=== PATIENT | female | born 1990 | race Two or more races ===

== ENCOUNTER 2018-11-17 20:50 | Emergency (ER) | payer SELFPAY ==
[~2018-11-17] VITALS: Ht 170.2 cm; Wt 74.8 kg
[2018-11-17 20:58] VITALS: BP 139/56
[2018-11-17 21:14] LABS: BILIRUBIN,URINE NEGATIVE (NEG); CLARITY,URINE CLOUDY; COLOR,URINE YELLOW; NITRITE,URINE POSITIVE (NEG); PH,URINE 6.5; PROTEIN,URINE 30 mg/dL (NEG-TRACE)
[2018-11-17 21:30] LABS: BACTERIA,URINE MANY /HPF (0-FEW); SQUAMOUS EPITHELIAL CELL,UR MANY /LPF; WBC,URINE TNTC /HPF (0-4)
[2018-11-17] MEDS ORDERED: PHEN-318 PO (21:54)
[2018-11-17] MEDS ORDERED: NITR100C62 PO (21:54)
--- NOTE | 2018-11-17 21:54 | PHYS DOC ---
Past Medical History Past Medical History: No Pertinent History, Other Additional Past Medical Histor: SEPSIS,OVARIAN CYSTS Past Surgical History: Appendectomy, Cholecystectomy, Hysterectomy, Tubal ligation, Other Additional Past Surgical Histo: LAPAROSCOPY X3,ABD SURG/MASS,OVARY REMOVED Additional Information: 0.25 PPD Alcohol Use: Rarely Drug Use: None Adult General Chief Complaint Chief Complaint: PAIN ON URINATION [facility] Patient is a 28 year old [f__sex] who presents with [] Review of Systems Review of Systems Constitutional: Denies fever or chills [] Eyes: Denies change in visual acuity, redness, or eye pain [] HENT: Denies nasal congestion or sore throat [] Respiratory: Denies cough or shortness of breath [] Cardiovascular: No additional information not addressed in HPI [] GI: Denies abdominal pain, nausea, vomiting, bloody stools or diarrhea [] : Denies dysuria or hematuria [] Musculoskeletal: Denies back pain or joint pain [] Integument: Denies rash or skin lesions [] Neurologic: Denies headache, focal weakness or sensory changes [] Endocrine: Denies polyuria or polydipsia [] All other systems were reviewed and found to be within normal limits, except as documented in this note. Allergies Allergies Allergies Coded Allergies Type Severity Reaction Last Updated Verified Penicillins Allergy Unknown 11/17/18 Yes amoxicillin Allergy Unknown 11/17/18 Yes cefaclor Allergy Unknown 11/17/18 Yes Physical Exam Physical Exam Constitutional: Well developed, well nourished, no acute distress, non-toxic appearance. [] HENT: Normocephalic, atraumatic, bilateral external ears normal, oropharynx moist, no oral exudates, nose normal. [] Eyes: PERRLA, EOMI, conjunctiva normal, no discharge. [] Neck: Normal range of motion, no tenderness, supple, no stridor. [] Cardiovascular:Heart rate regular rhythm, no murmur [] Lungs & Thorax: Bilateral breath sounds clear to auscultation [] Abdomen: Bowel sounds normal, soft, no tenderness, no masses, no pulsatile masses. [] Skin: Warm, dry, no erythema, no rash. [] Back: No tenderness, no CVA tenderness. [] Extremities: No tenderness, no cyanosis, no clubbing, ROM intact, no edema. [] Neurologic: Alert and oriented X 3, normal motor function, normal sensory function, no focal deficits noted. [] Psychologic: Affect normal, judgement normal, mood normal. [] Current Patient Data Vital Signs Vital Signs Date Time Temp Pulse Resp B/P (MAP) Pulse Ox O2 Delivery O2 Flow Rate FiO2 11/17/18 20:58 97.9 95 16 139/56 (83) 98 Room Air 97.9 Lab Values Laboratory Tests Test 11/17/18 20:56 Urine Collection Type Void Urine Color Yellow Urine Clarity Cloudy Urine pH 6.5 Urine Specific [place] >=1.030 Urine Protein 30 mg/dL (NEG-TRACE) Urine Glucose (UA) Negative mg/dL (NEG) Urine Ketones (Stick) Negative mg/dL (NEG) Urine Blood Moderate (NEG) Urine Nitrite Positive (NEG) Urine Bilirubin Negative (NEG) Urine Urobilinogen Dipstick 1.0 mg/dL (0.2 mg/dL) Urine Leukocyte Esterase Large (NEG) Urine RBC 3-5 /HPF (0-2) Urine WBC Tntc /HPF (0-4) Urine Squamous Epithelial Cells Many /LPF Urine Bacteria Many /HPF (0-FEW) Urine Mucus Marked /LPF EKG EKG [] Radiology/Procedures Radiology/Procedures [] Course & Med Decision Making Course & Med Decision Making Pertinent Labs and Imaging studies reviewed. (See chart for details) [] Dragon Disclaimer Dragon Disclaimer This electronic medical record was generated, in whole or in part, using a voice recognition dictation system. Departure Departure Impression: Primary Impression: Urinary tract infection Disposition: 01 HOME, SELF-CARE Condition: STABLE Patient Instructions: Urinary Tract Infection, Abjf-ox-Lojg Scripts Nitrofurantoin Monohyd/M-Cryst (MACROBID 100 MG CAPSULE) 100 Mg Capsule 1 CAP PO BID for 7 Days, #14 CAP Prov: DHAVAL VILLA DO 11/17/18 Phenazopyridine Hcl (PYRIDIUM) 200 Mg Tablet 200 MG PO TID, #6 TAB Prov: DHAVAL VILLA DO 11/17/18 Problem Qualifiers Primary Impression: Urinary tract infection Urinary tract infection type: acute cystitis Hematuria presence: without hematuria Qualified Codes: N30.00 - Acute cystitis without hematuria DHAVAL VILLA DO November 17, 2018 21:54
[2018-11-17] MEDS ORDERED: PHENAZOPYRIDINE 200 MG TABLET. PO ONE (22:00)
[2018-11-17] MEDS ORDERED: NITROFURANTOIN MONOHYD/M-CRYST 100 MG CAPSULE. PO ONE (22:00)
== END 2018-11-17 22:08 | disposition home or self-care (01) ==
LOC: ER 20:50
DX: N30.00 Acute cystitis without hematuria (principal); F17.200 Nicotine dependence, unspecified, uncomplicated; Z90.89 Acquired absence of other organs; Z90.49 Acquired absence of other specified parts of digestive tract; Z90.710 Acquired absence of both cervix and uterus; Z98.51 Tubal ligation status; Z88.0 Allergy status to penicillin; Z88.1 Allergy status to other antibiotic agents
CPT/HCPCS: 81001; 87086; 87186; 99284

== ENCOUNTER 2019-01-09 20:08 | Emergency (ER) | payer SELFPAY ==
[~2019-01-09] VITALS: Ht 170.2 cm; Wt 72.6 kg
[~2019-01-09 20:08] MED LIST: NITR100C62 PO; PHEN-318 PO
[2019-01-09 20:45] VITALS: BP 113/62
[2019-01-09 21:09] LABS: BILIRUBIN,URINE NEGATIVE (NEG); CLARITY,URINE TURBID; COLOR,URINE YELLOW; NITRITE,URINE NEGATIVE (NEG); PROTEIN,URINE 100 mg/dL (NEG-TRACE)
[2019-01-09] MEDS ORDERED: LEVO500T59 PO (21:17)
[2019-01-09] MEDS ORDERED: PHEN-318 PO (21:17)
--- NOTE | 2019-01-09 21:17 | PHYS DOC ---
Past Medical History Past Medical History: Other Additional Past Medical Histor: SEPSIS,OVARIAN CYSTS Past Surgical History: Appendectomy, Cholecystectomy, Hysterectomy, Tubal li gation, Other Additional Past Surgical Histo: LAPAROSCOPY X3,ABD SURG/MASS,OVARY REMOVED Additional Information: 0.25 PPD Alcohol Use: Rarely Drug Use: None Adult General Chief Complaint Chief Complaint: PAIN ON URINATION HPI HPI 28-year-old female with a history of a hysterectomy presents with burning and discomfort with urination. She has had some nausea today. She denies any high fever chills or sweats. She denies any gross hematuria. She denies any back or flank pain today. She states she had a urinary tract infection back in October.[] Review of Systems Review of Systems Constitutional: Denies fever or chills [] Eyes: Denies change in visual acuity, redness, or eye pain [] HENT: Denies nasal congestion or sore throat [] Respiratory: Denies cough or shortness of breath [] Cardiovascular: No additional information not addressed in HPI [] GI: Reports some nausea[] : Per history of present illness[] Musculoskeletal: Denies back pain or joint pain [] Integument: Denies rash or skin lesions [] Neurologic: Denies headache, focal weakness or sensory changes [] Endocrine: Denies polyuria or polydipsia [] All other systems were reviewed and found to be within normal limits, except as documented in this note. Current Medications Current Medications Current Medications Medications (Trade) Dose Ordered Sig/Florencia Start Time Stop Time Status Last Admin Dose Admin Levofloxacin (Levaquin) 500 mg 1X ONCE 01/09/19 21:30 01/09/19 21:31 01/09/19 21:13 500 MG Phenazopyridine HCl (Pyridium) 200 mg 1X ONCE 01/09/19 21:30 01/09/19 21:31 01/09/19 21:13 200 MG Allergies Allergies Allergies Coded Allergies Type Severity Reaction Last Updated Verified Penicillins Allergy Unknown 11/17/18 Yes amoxicillin Allergy Unknown 11/17/18 Yes cefaclor Allergy Unknown 11/17/18 Yes Physical Exam Physical Exam Constitutional: Well developed, well nourished, no acute distress, non-toxic appearance. [] HENT: Normocephalic, atraumatic, bilateral external ears normal, oropharynx moist, no oral exudates, nose normal. [] Eyes: PERRLA, EOMI, conjunctiva normal, no discharge. [] Neck: Normal range of motion, no tenderness, supple, no stridor. [] Cardiovascular:Heart rate regular rhythm, no murmur [] Lungs & Thorax: Bilateral breath sounds clear to auscultation [] Abdomen: Some mild suprapubic tenderness otherwise benign[] Skin: Warm, dry, no erythema, no rash. [] Back: No tenderness, no CVA tenderness. [] Extremities: No tenderness, no cyanosis, no clubbing, ROM intact, no edema. [] Neurologic: Alert and oriented X 3, normal motor function, normal sensory function, no focal deficits noted. [] Psychologic: Affect normal, judgement normal, mood normal. [] Current Patient Data Vital Signs Vital Signs Date Time Temp Pulse Resp B/P (MAP) Pulse Ox O2 Delivery O2 Flow Rate FiO2 01/09/19 20:45 98.9 91 18 113/62 (79) 98 Room Air 98.9 EKG EKG [] Radiology/Procedures Radiology/Procedures [] Course & Med Decision Making Course & Med Decision Making Pertinent Labs and Imaging studies reviewed. (See chart for details) [] Dragon Disclaimer Dragon Disclaimer This electronic medical record was generated, in whole or in part, using a voice recognition dictation system. Departure Departure Impression: Primary Impression: Urinary tract infection Disposition: 01 HOME, SELF-CARE Condition: STABLE Referrals: NO PCP (PCP) Patient Instructions: Urinary Tract Infection Additional Instructions: Drink plenty of fluids. Take your antibiotics as directed. Return to the emergency department with any new or concerning symptoms Scripts Phenazopyridine Hcl (PYRIDIUM) 200 Mg Tablet 200 MG PO Q8HRS PRN for DYSURIA, #10 TAB Prov: UMER SILVA DO 01/09/19 Levofloxacin (LEVAQUIN) 500 Mg Tablet 1 TAB PO DAILY for urinary tract infection, #7 TAB Prov: UMER SILVA DO 01/09/19 Problem Qualifiers Primary Impression: Urinary tract infection Urinary tract infection type: site unspecified Hematuria presence: without hematuria Qualified Codes: N39.0 - Urinary tract infection, site not specified UMRE SILVA DO Jan 09, 2019 21:17
[2019-01-09 21:18] LABS: SQUAMOUS EPITHELIAL CELL,UR FEW /LPF
[2019-01-09 21:19] LABS: AMORPHOUS SEDIMENT,UR PRESENT /HPF; BACTERIA,URINE MODERATE /HPF (0-FEW); WBC,URINE TNTC /HPF (0-4)
[2019-01-09] MEDS ORDERED: PHENAZOPYRIDINE 200 MG TABLET. PO ONE (21:30)
== END 2019-01-09 21:30 | disposition home or self-care (01) ==
LOC: ER 20:08
DX: N39.0 Urinary tract infection, site not specified (principal); R11.0 Nausea; F17.200 Nicotine dependence, unspecified, uncomplicated; Z90.89 Acquired absence of other organs; Z90.49 Acquired absence of other specified parts of digestive tract; Z90.710 Acquired absence of both cervix and uterus; Z98.51 Tubal ligation status; Z88.0 Allergy status to penicillin; Z88.1 Allergy status to other antibiotic agents
CPT/HCPCS: 81001; 87086; 99284

== ENCOUNTER 2019-03-18 15:45 | Emergency (ER) | payer MEDICAID ==
[~2019-03-18] VITALS: Ht 170.2 cm; Wt 68.5 kg
[~2019-03-18 15:45] MED LIST changes: +LEVO500T59 PO
[2019-03-18 16:05] VITALS: BP 115/71
--- NOTE | 2019-03-18 16:49 | PHYS DOC ---
Past Medical History Past Medical History: Other Additional Past Medical Histor: SEPSIS,OVARIAN CYSTS Past Surgical History: Appendectomy, Cholecystectomy, Hysterectomy, Tubal li gation, Other Additional Past Surgical Histo: LAPAROSCOPY X3,ABD SURG/MASS,OVARY REMOVED Alcohol Use: Rarely Drug Use: None Adult General Chief Complaint Chief Complaint: PAIN ON URINATION [facility] HPI Patient is a 28 year old female presents to the ED complaining of dysuria �1 week. States that she has burning with urination. Describes the pain as sharp. Rates the pain as 5 out of 10. Denies vaginal discharge/bleeding, STD exposure, hematuria, flank pain, headache, dizziness, chills or fever. Review of Systems Review of Systems Constitutional: Denies fever or chills [] Eyes: Denies change in visual acuity, redness, or eye pain [] HENT: Denies nasal congestion or sore throat [] Respiratory: Denies cough or shortness of breath [] Cardiovascular: No additional information not addressed in HPI [] GI: Denies abdominal pain, nausea, vomiting, bloody stools or diarrhea [] : Complains of dysuria. Denies hematuria [] Musculoskeletal: Denies back pain or joint pain [] Integument: Denies rash or skin lesions [] Neurologic: Denies headache, focal weakness or sensory changes [] All other systems were reviewed and found to be within normal limits, except as documented in this note. Allergies Allergies Allergies Coded Allergies Type Severity Reaction Last Updated Verified Penicillins Allergy Unknown 11/17/18 Yes amoxicillin Allergy Unknown 11/17/18 Yes cefaclor Allergy Unknown 11/17/18 Yes Physical Exam Physical Exam Constitutional: Well developed, well nourished, no acute distress, non-toxic appearance. [] HENT: Normocephalic, atraumatic Cardiovascular:Heart rate regular rhythm, no murmur [] Lungs & Thorax: Bilateral breath sounds clear to auscultation [] Abdomen: Bowel sounds normal, soft, no tenderness, no masses, no pulsatile masses. No CVA tenderness. Skin: Warm, dry, no erythema, no rash. [] Back: No tenderness, no CVA tenderness. [] Extremities: No tenderness, no cyanosis, no clubbing, ROM intact, no edema. [] Neurologic: Alert and oriented X 3, normal motor function, normal sensory function, no focal deficits noted. [] Psychologic: Affect normal, judgement normal, mood normal. [] Current Patient Data Lab Values Laboratory Tests Test 03/18/19 16:58 Urine Collection Type Unknown Urine Color Yellow Urine Clarity Cloudy Urine pH 8.5 Urine Specific [place] 1.015 Urine Protein Negative mg/dL (NEG-TRACE) Urine Glucose (UA) Negative mg/dL (NEG) Urine Ketones (Stick) Negative mg/dL (NEG) Urine Blood Negative (NEG) Urine Nitrite Negative (NEG) Urine Bilirubin Negative (NEG) Urine Urobilinogen Dipstick 0.2 mg/dL (0.2 mg/dL) Urine Leukocyte Esterase Small (NEG) Urine RBC 0 /HPF (0-2) Urine WBC 5-10 /HPF (0-4) Urine Squamous Epithelial Cells Mod /LPF Urine Transitional Epithelial Cells Occ /LPF Urine Amorphous Sediment Present /HPF Urine Bacteria 0 /HPF (0-FEW) Urine Mucus Slight /LPF EKG EKG [] Radiology/Procedures Radiology/Procedures [] Course & Med Decision Making Course & Med Decision Making Pertinent Labs and Imaging studies reviewed. (See chart for details) []Discussed lab findings with patient. We'll prescribe outpatient. Discussed symptomatic treatment and follow-up if symptoms persist. Discussed reasons to return to the ED. Patient understands and agrees with plan. Dragon Disclaimer Dragon Disclaimer This electronic medical record was generated, in whole or in part, using a voice recognition dictation system. Departure Departure Impression: Primary Impression: UTI (urinary tract infection) Disposition: HOME, SELF-CARE Condition: IMPROVED Referrals: FUNMILAYO ESPINO MD (PCP) Patient Instructions: Urinary Tract Infection Scripts Nitrofurantoin Monohyd/M-Cryst (MACROBID 100 MG CAPSULE) 100 Mg Capsule 1 CAP PO BID, #14 CAP Prov: RONNIE FINLEY 03/18/19 RONNIE FINLEY Mar 18, 2019 16:49
[2019-03-18 17:07] LABS: BILIRUBIN,URINE NEGATIVE (NEG); CLARITY,URINE CLOUDY; COLOR,URINE YELLOW; NITRITE,URINE NEGATIVE (NEG); PH,URINE 8.5; PROTEIN,URINE NEGATIVE (NEG-TRACE); UROBILINOGEN,URINE 0.2 mg/dL (0.2 mg/dL)
[2019-03-18 17:14] LABS: AMORPHOUS SEDIMENT,UR PRESENT /HPF; SQUAMOUS EPITHELIAL CELL,UR MOD /LPF
[2019-03-18 17:16] LABS: BACTERIA,URINE 0 /HPF (0-FEW); RBC,URINE 0 /HPF (0-2)
[2019-03-18] MEDS ORDERED: NITR100C62 PO (17:18)
== END 2019-03-18 17:22 | disposition home or self-care (01) ==
LOC: ER 15:45
DX: N39.0 Urinary tract infection, site not specified (principal); Z90.49 Acquired absence of other specified parts of digestive tract; Z90.710 Acquired absence of both cervix and uterus; Z90.89 Acquired absence of other organs; Z98.51 Tubal ligation status; Z88.0 Allergy status to penicillin; Z88.1 Allergy status to other antibiotic agents; Z88.8 Allergy status to other drugs, medicaments and biological substances
CPT/HCPCS: 81001; 99283

== ENCOUNTER 2019-04-18 09:50 | Emergency (ER) | payer MEDICAID ==
[~2019-04-18] VITALS: Ht 170.2 cm; Wt 69.9 kg
--- NOTE | 2019-04-18 10:23 | PHYS DOC ---
Past Medical History Past Medical History: Migraines, Other Additional Past Medical Histor: SEPSIS,OVARIAN CYSTS, CHRONIC BACK PAIN Past Surgical History: Appendectomy, Cholecystectomy, Hysterectomy, Tubal ligation, Other Additional Past Surgical Histo: LAPAROSCOPY X3,ABD SURG/MASS,OVARY REMOVED, D&C Additional Information: 5 cigarettes daily Alcohol Use: Rarely Drug Use: Marijuana Adult General Chief Complaint Chief Complaint: ABDOMINAL PAIN HPI HPI Patient is a 28 year old female who presents with complaining of abdominal pain. Patient complaining of suprapubic pain since yesterday as a constant and aching pain with radiation to her back and into her pain or 01/09. Patient complaining of nausea without vomiting, fever and chills, diarrhea and constipation, urinary symptoms, vaginal discharge. Patient states she had painful intercourse last night. Patient had history of hysterectomy, appen dectomy, cholecystectomy and episodes of UTI and states her pain was different with UTI previously. Patient did not take any pain medication since yesterday. Review of Systems Review of Systems Constitutional: Denies fever or chills [] Eyes: Denies change in visual acuity, redness, or eye pain [] HENT: Denies nasal congestion or sore throat [] Respiratory: Denies cough or shortness of breath [] Cardiovascular: No additional information not addressed in HPI [] GI: Reports abdominal pain, nausea, denies vomiting, bloody stools or diarrhea [] : Denies dysuria or hematuria [] Musculoskeletal: Denies back pain or joint pain [] Integument: Denies rash or skin lesions [] Neurologic: Denies headache, focal weakness or sensory changes [] Endocrine: Denies polyuria or polydipsia [] All other systems were reviewed and found to be within normal limits, except as documented in this note. Current Medications Current Medications Current Medications Medications (Trade) Dose Ordered Sig/Florencia Start Time Stop Time Status Last Admin Dose Admin Ketorolac Tromethamine (Toradol Im) 60 mg 1X ONCE 04/18/19 10:45 04/18/19 10:46 DC 04/18/19 10:19 60 MG Allergies Allergies Allergies Coded Allergies Type Severity Reaction Last Updated Verified Penicillins Allergy Unknown 11/17/18 Yes amoxicillin Allergy Unknown 11/17/18 Yes cefaclor Allergy Unknown 11/17/18 Yes Physical Exam Physical Exam Constitutional: Well developed, well nourished, mild distress, non-toxic appearance. [] HENT: Normocephalic, atraumatic. Eyes: PERRLA, EOMI, conjunctiva normal, no discharge. [] Neck: Normal range of motion, no tenderness, supple, no stridor. [] Cardiovascular:Heart rate regular rhythm, no murmur [] Lungs & Thorax: Bilateral breath sounds clear to auscultation [] Abdomen: Bowel sounds normal, soft, no tenderness, suprapubic guarding, no mass es, no pulsatile masses. [] Skin: Warm, dry, no erythema, no rash. [] Back: No tenderness, no CVA tenderness. [] Extremities: No tenderness, no cyanosis, no clubbing, ROM intact, no edema. [] Neurologic: Alert and oriented X 3, no focal deficits noted. [] Psychologic: Affect normal, judgement normal, mood normal. [] Current Patient Data Vital Signs Vital Signs Date Time Temp Pulse Resp B/P (MAP) Pulse Ox O2 Delivery O2 Flow Rate FiO2 04/18/19 11:04 80 16 112/67 (82) 98 Room Air 04/18/19 10:00 97.3 97.3 Lab Values Laboratory Tests Test 04/18/19 10:03 04/18/19 10:10 POC Urine HCG, Qualitative Hcg negative (Negative) Urine Collection Type Unknown Urine Color Yellow Urine Clarity Clear Urine pH 8.0 Urine Specific [place] 1.020 Urine Protein Negative mg/dL (NEG-TRACE) Urine Glucose (UA) Negative mg/dL (NEG) Urine Ketones (Stick) Negative mg/dL (NEG) Urine Blood Negative (NEG) Urine Nitrite Negative (NEG) Urine Bilirubin Negative (NEG) Urine Urobilinogen Dipstick 1.0 mg/dL (0.2 mg/dL) Urine Leukocyte Esterase Negative (NEG) Urine RBC 0 /HPF (0-2) Urine WBC 1-4 /HPF (0-4) Urine Squamous Epithelial Cells Many /LPF Urine Bacteria Moderate /HPF (0-FEW) Urine Mucus Marked /LPF EKG EKG [] Radiology/Procedures Radiology/Procedures [] Course & Med Decision Making Course & Med Decision Making Pertinent Labs reviewed. (See chart for details) Evaluation of patient in ER showed 28-year-old female patient with hysterectomy, appendectomy, cholecystectomy complaining of constant suprapubic pain since yesterday without other symptoms. Patient had unremarkable physical exam. Patient has frequent UTI and treated for UTI and was advised to follow up with her primary care physician. Dragon Disclaimer Dragon Disclaimer This electronic medical record was generated, in whole or in part, using a voice recognition dictation system. Departure Departure Impression: Primary Impression: Urinary tract infection Additional Impression: Suprapubic pain Disposition: HOME, SELF-CARE (at 1049) Condition: STABLE Referrals: FUNMILAYO ESPINO MD (PCP) Patient Instructions: Urinary Tract Infection Additional Instructions: Drink plenty of liquids Follow-up with your primary care physician in 3-5 days Return to ER if not getting better Scripts Tramadol Hcl (ULTRAM) 50 Mg Tablet 50 MG PO Q6HRS PRN for PAIN, #14 TAB 0 Refills Prov: NATHALIA JEAN MD 04/18/19 Sulfamethoxazole/Trimethoprim (BACTRIM DS TABLET) 1 Each Tablet 1 TAB PO BID for infection, #14 TAB Prov: NATHALIA JEAN MD 04/18/19 Problem Qualifiers Primary Impression: Urinary tract infection Urinary tract infection type: site unspecified Hematuria presence: without hematuria Qualified Codes: N39.0 - Urinary tract infection, site not specified NATHALIA JEAN MD Apr 18, 2019 10:22
[2019-04-18 10:25] LABS: BILIRUBIN,URINE NEGATIVE (NEG); CLARITY,URINE CLEAR; COLOR,URINE YELLOW; NITRITE,URINE NEGATIVE (NEG); PROTEIN,URINE NEGATIVE (NEG-TRACE)
[2019-04-18 10:37] LABS: BACTERIA,URINE MODERATE /HPF (0-FEW); RBC,URINE 0 /HPF (0-2); SQUAMOUS EPITHELIAL CELL,UR MANY /LPF
[2019-04-18] MEDS ORDERED: KETOROLAC 60 MG/2 ML VIAL. IM ONE (10:45)
[2019-04-18] MEDS ORDERED: SULF1TAB24 PO (10:51)
[2019-04-18] MEDS ORDERED: TRAM-48 PO (10:51)
[2019-04-18 11:04] VITALS: BP 112/67
== END 2019-04-18 11:04 | disposition home or self-care (01) ==
LOC: ER 09:50
DX: N39.0 Urinary tract infection, site not specified (principal); R11.0 Nausea; G43.909 Migraine, unspecified, not intractable, without status migrainosus; F17.210 Nicotine dependence, cigarettes, uncomplicated; G89.29 Other chronic pain; Z90.49 Acquired absence of other specified parts of digestive tract; Z90.89 Acquired absence of other organs; Z90.710 Acquired absence of both cervix and uterus; Z98.51 Tubal ligation status; Z88.1 Allergy status to other antibiotic agents; Z88.0 Allergy status to penicillin
CPT/HCPCS: 81001; 81025; 87086; 96372; 99284; J1885

== ENCOUNTER 2019-04-18 16:01 | Emergency (ER) | payer MEDICAID ==
[~2019-04-18] VITALS: Ht 170.2 cm; Wt 69.9 kg
[~2019-04-18 16:01] MED LIST changes: +SULF1TAB24 PO; +TRAM-48 PO
[2019-04-18] MEDS ORDERED: IV NORMAL SALINE 1000ML BAG 1,000 ML IV ONE (17:00)
[2019-04-18] MEDS ORDERED: ONDANSETRON PF 4 MG/2 ML VIAL. IV ONE (17:00)
[2019-04-18] MEDS ORDERED: fentaNYL PF VIAL 100 MCG/2 ML VIAL IVP ONE (17:00)
--- NOTE | 2019-04-18 17:01 | PHYS DOC ---
Past Medical History Past Medical History: Migraines, Other Additional Past Medical Histor: SEPSIS,OVARIAN CYSTS, CHRONIC BACK PAIN (ZULEYKA KENT APRN) Past Surgical History: Appendectomy, Cholecystectomy, Hysterectomy, Tubal ligation, Other Additional Past Surgical Histo: LAPAROSCOPY X3,ABD SURG/MASS,OVARY REMOVED, D&C (ZULEYKA KENT APRN) Alcohol Use: Rarely Drug Use: Marijuana (ZULEYKA KENT APRN) Adult General Chief Complaint Chief Complaint: ABDOMINAL PAIN HPI HPI Patient is a 28 year old female who presents with dysarthria this morning diagnosed with a urinary tract infection. Patient states she followed up with her primary care provider who sent her back here and stated she needed blood work and a abdomen scan. Patient rates her pain 8 out of 10 and states she got a Toradol shot this morning but it did nothing but made her sleepy. Patient states she also started having diarrhea today and is nauseated with a lack of appetite today. (ZULEYKA KENT APRN) Review of Systems Review of Systems GI: abdominal pain, nausea, denies vomiting, bloody stools. +diarrhea [] Musculoskeletal: Left flank back pain or joint pain [] All other systems were reviewed and found to be within normal limits, except as documented in this note. (ZULEYKA KENT APRN) Current Medications Current Medications Current Medications Medications (Trade) Dose Ordered Sig/[place] Start Time Stop Time Status Last Admin Dose Admin Fentanyl Citrate (Fentanyl 2ml Vial) 50 mcg 1X ONCE 04/18/19 17:00 04/18/19 17:01 DC 04/18/19 17:50 50 MCG Info (CONTRAST GIVEN -- Rx MONITORING) 1 each PRN DAILY PRN 04/18/19 18:15 04/18/19 19:00 DC Iohexol (Omnipaque 300 Mg/ml) 75 ml 1X ONCE 04/18/19 18:00 04/18/19 18:01 DC 04/18/19 18:04 75 ML Ondansetron HCl (Zofran) 4 mg 1X ONCE 04/18/19 17:00 04/18/19 17:01 DC 04/18/19 17:49 4 MG Sodium Chloride 1,000 ml @ 1,000 mls/hr 1X ONCE 04/18/19 17:00 04/18/19 17:59 DC 04/18/19 17:25 1,000 MLS/HR (NATHALIA JEAN MD) Allergies Allergies Allergies Coded Allergies Type Severity Reaction Last Updated Verified Penicillins Allergy Unknown 11/17/18 Yes amoxicillin Allergy Unknown 11/17/18 Yes cefaclor Allergy Unknown 11/17/18 Yes (NATHALIA JEAN MD) Physical Exam Physical Exam Constitutional: Well developed, well nourished, no acute distress, non-toxic appearance. [] Abdomen: Bowel sounds normal, soft, RLQ, LLQ, mid lower tenderness, no masses, no pulsatile masses. [] Skin: Warm, dry, no erythema, no rash. [] Back: No tenderness, Left CVA tenderness. [] Neurologic: Alert and oriented X 3, normal motor function, normal sensory function, no focal deficits noted. [] Psychologic: Affect normal, judgement normal, mood normal. [] (ZULEYKA KENT APRN) Current Patient Data Vital Signs Vital Signs Date Time Temp Pulse Resp B/P (MAP) Pulse Ox O2 Delivery O2 Flow Rate FiO2 04/18/19 18:45 88 16 115/67 (83) 99 Room Air 04/18/19 16:45 98.0 98.0 (NATHALIA JEAN MD) Lab Values Laboratory Tests Test 04/18/19 17:20 White Blood Count 6.0 x10^3/uL (4.0-11.0) Red Blood Count 4.07 x10^6/uL (3.50-5.40) Hemoglobin 13.1 g/dL (12.0-15.5) Hematocrit 38.6 % (36.0-47.0) Mean Corpuscular Volume 95 fL (79-100) Mean Corpuscular Hemoglobin 32 pg (25-35) Mean Corpuscular Hemoglobin Concent 34 g/dL (31-37) Red Cell Distribution Width 12.3 % (11.5-14.5) Platelet Count 201 x10^3/uL (140-400) Neutrophils (%) (Auto) 60 % (31-73) Lymphocytes (%) (Auto) 29 % (24-48) Monocytes (%) (Auto) 8 % (0-9) Eosinophils (%) (Auto) 3 % (0-3) Basophils (%) (Auto) 1 % (0-3) Neutrophils # (Auto) 3.6 x10^3/uL (1.8-7.7) Lymphocytes # (Auto) 1.7 x10^3/uL (1.0-4.8) Monocytes # (Auto) 0.5 x10^3/uL (0.0-1.1) Eosinophils # (Auto) 0.2 x10^3/uL (0.0-0.7) Basophils # (Auto) 0.0 x10^3/uL (0.0-0.2) Sodium Level 140 mmol/L (136-145) Potassium Level 4.1 mmol/L (3.5-5.1) Chloride Level 105 mmol/L (98-107) Carbon Dioxide Level 26 mmol/L (21-32) Anion Gap 9 (6-14) Blood Urea Nitrogen 14 mg/dL (7-20) Creatinine 0.9 mg/dL (0.6-1.0) Estimated GFR (Cockcroft-Gault) 75.1 BUN/Creatinine Ratio 16 (6-20) Glucose Level 90 mg/dL (70-99) Calcium Level 8.6 mg/dL (8.5-10.1) Total Bilirubin 0.3 mg/dL (0.2-1.0) Aspartate Amino Transferase (AST) 18 U/L (15-37) Alanine Aminotransferase (ALT) 16 U/L (14-59) Alkaline Phosphatase 61 U/L (46-116) Total Protein 7.1 g/dL (6.4-8.2) Albumin 3.9 g/dL (3.4-5.0) Albumin/Globulin Ratio 1.2 (1.0-1.7) Laboratory Tests 04/18/19 17:20 Laboratory Tests 04/18/19 17:20 (NATHALIA JEAN MD) Lab Values Laboratory Tests Test 04/18/19 17:20 White Blood Count 6.0 x10^3/uL (4.0-11.0) Red Blood Count 4.07 x10^6/uL (3.50-5.40) Hemoglobin 13.1 g/dL (12.0-15.5) Hematocrit 38.6 % (36.0-47.0) Mean Corpuscular Volume 95 fL (79-100) Mean Corpuscular Hemoglobin 32 pg (25-35) Mean Corpuscular Hemoglobin Concent 34 g/dL (31-37) Red Cell Distribution Width 12.3 % (11.5-14.5) Platelet Count 201 x10^3/uL (140-400) Neutrophils (%) (Auto) 60 % (31-73) Lymphocytes (%) (Auto) 29 % (24-48) Monocytes (%) (Auto) 8 % (0-9) Eosinophils (%) (Auto) 3 % (0-3) Basophils (%) (Auto) 1 % (0-3) Neutrophils # (Auto) 3.6 x10^3/uL (1.8-7.7) Lymphocytes # (Auto) 1.7 x10^3/uL (1.0-4.8) Monocytes # (Auto) 0.5 x10^3/uL (0.0-1.1) Eosinophils # (Auto) 0.2 x10^3/uL (0.0-0.7) Basophils # (Auto) 0.0 x10^3/uL (0.0-0.2) Sodium Level 140 mmol/L (136-145) Potassium Level 4.1 mmol/L (3.5-5.1) Chloride Level 105 mmol/L (98-107) Carbon Dioxide Level 26 mmol/L (21-32) Anion Gap 9 (6-14) Blood Urea Nitrogen 14 mg/dL (7-20) Creatinine 0.9 mg/dL (0.6-1.0) Estimated GFR (Cockcroft-Gault) 75.1 BUN/Creatinine Ratio 16 (6-20) Glucose Level 90 mg/dL (70-99) Calcium Level 8.6 mg/dL (8.5-10.1) Total Bilirubin 0.3 mg/dL (0.2-1.0) Aspartate Amino Transferase (AST) 18 U/L (15-37) Alanine Aminotransferase (ALT) 16 U/L (14-59) Alkaline Phosphatase 61 U/L (46-116) Total Protein 7.1 g/dL (6.4-8.2) Albumin 3.9 g/dL (3.4-5.0) Albumin/Globulin Ratio 1.2 (1.0-1.7) Laboratory Tests 04/18/19 17:20 Laboratory Tests 04/18/19 17:20 (ZULEYKA KENT APRN) EKG EKG [] (ZULEYKA KENT APRN) Radiology/Procedures Radiology/Procedures [] (ZULEYKA KENT APRN) Impressions: [facility] [id number] [place] [address] IMAGING REPORT Signed PATIENT: DILLON SULLIVAN ACCOUNT: [id number] : 1990 LOCATION: ER AGE: 28 SEX: F EXAM STATUS: REG ER ORD. PHYSICIAN: ZULEYKA KENT APRN REASON: abd pain, flank pain PROCEDURE: CT ABD PELV W/ IV CONTRST ONLY CT SCAN OF THE ABDOMEN AND PELVIS WITH IV CONTRAST. History: Abdominal pain Comparison:None. Procedure: Contiguous axial images of the abdomen and pelvis were performed after the administration of 75 cc of Isovue 370 IV contrast and without oral contrast. CT Abdomen with contrast: Findings: Liver: Unremarkable Spleen: Unremarkable Pancreas: Unremarkable Adrenal Glands: Unremarkable Kidneys: Unremarkable There is no mass or lymphadenopathy. There is no free air. There is no free fluid. There has been prior cholecystectomy. CT Pelvis with Contrast: Findings: The urinary bladder appears normal. There is a trace of free fluid. There is no lymphadenopathy. There is a 3.5 x 3.7 cm cyst in the left adnexa. The uterus is not seen and could be small or surgically removed. The appendix is not seen. Impression: 1. Cystic mass in the left adnexa likely of ovarian origin. Assuming the patient is not a 2-3 month follow-up ultrasound is recommended. 2. Trace of free fluid in the pelvis likely physiologic. End impression PQRS Compliance Statement: One or more of the following individualized dose reduction techniques were utilized for this examination: 1. Automated exposure control 2. Adjustment of the mA and/or kV according to patient size 3. Use of iterative reconstruction technique Electronically signed by: Dionisio Coats III, MD (04/18/2019 6:33 PM) [facility] DICTATED and SIGNED BY: DIONISIO COATS III, MD DATE: 04/18/19 183 (ZULEYKA KENT APRN) Course & Med Decision Making Course & Med Decision Making Patient denies any vaginal discharge, abnormal bleeding. The right lower mid and left lower abdomen is tender with more so on the left lower side. Patient states the pain is sharp and wraps around to her left back. Patient has left CVA tenderness. Abdomen is otherwise soft and nontender. Skin pink warm and dry. Ambulatory with a steady gait. Alert and oriented. Speaks in full clear sentences. Patient denies fever, vomiting, constipation, vaginal discharge, dysuria symptoms, chest pain, shortness of air, headache, dizziness, numbness or tingling, visual changes. Patient's urinalysis from earlier today does not show a UTI and has no blood in it. It is also contaminated. Patient has a history of ovarian cysts, chronic back pain, appendectomy, cholecystectomy, hysterectomy, tubal ligation, migraines. CT ABD PELV shows: 1. Cystic mass in the left adnexa likely of ovarian origin. Assuming the patient is not a 2-3 month follow-up ultrasound is recommended. 2. Trace of free fluid in the pelvis likely physiologic. Patient to follow up with gynecology or primary care. [] (ZULEYKA KENT APRN) Course & Med Decision Making I was not involved in the care of this patient after 1800. (NATHALIA JEAN MD) Dragon Disclaimer Dragon Disclaimer This electronic medical record was generated, in whole or in part, using a voice recognition dictation system. (ZULEYKA KENT APRN) Departure Departure Impression: Primary Impression: Ovarian cyst Disposition: HOME, SELF-CARE Condition: STABLE Referrals: FUNMILAYO ESPINO MD (PCP) LULU COLON Jr, MD Patient Instructions: Ovarian Cyst Additional Instructions: Follow up with primary care or gynecology. Problem Qualifiers Primary Impression: Ovarian cyst Laterality: left Qualified Codes: N83.202 - Unspecified ovarian cyst, left side ZULEYKA KENT APRN Apr 18, 2019 17:01 NATHALIA JEAN MD Apr 19, 2019 17:21
[2019-04-18 17:40] LABS: BASO % 1 % (0-3); EOS # 0.2 x10^3/uL (0.0-0.7); EOS % 3 % (0-3); HEMATOCRIT 38.6 % (36.0-47.0); HEMOGLOBIN 13.1 g/dL (12.0-15.5); LYMPH # 1.7 x10^3/uL (1.0-4.8); LYMPH % 29 % (24-48); MEAN CORPUSCULAR HEMOGLOBIN 32 pg (25-35); MEAN CORPUSCULAR HGB CONC 34 g/dL (31-37); MEAN CORPUSCULAR VOLUME 95 fL (79-100); MONO # 0.5 x10^3/uL (0.0-1.1); MONO % 8 % (0-9); NEUT # 3.6 x10^3/uL (1.8-7.7); NEUT % 60 % (31-73); PLATELET COUNT 201 x10^3/uL (140-400); RED BLOOD COUNT 4.07 x10^6/uL (3.50-5.40); RED CELL DISTRIBUTION WIDTH 12.3 % (11.5-14.5)
[2019-04-18 17:55] LABS: CALCIUM 8.6 mg/dL (8.5-10.1); CREATININE 0.9 mg/dL (0.6-1.0); GFR 75.1; POTASSIUM 4.1 mmol/L (3.5-5.1)
[2019-04-18] MEDS ORDERED: IOHEXOL 300 MG/ML 100ML VIAL. IV ONE (18:00)
[2019-04-18 18:01] LABS: ALBUMIN 3.9 g/dL (3.4-5.0); ALBUMIN/GLOBULIN RATIO 1.2 (1.0-1.7); TOTAL BILIRUBIN 0.3 mg/dL (0.2-1.0); TOTAL PROTEIN 7.1 g/dL (6.4-8.2)
[2019-04-18] MEDS ORDERED: CONTRAST GIVEN. MC PRN (18:15)
--- NOTE | 2019-04-18 18:36 | RAD ---
CT SCAN OF THE ABDOMEN AND PELVIS WITH IV CONTRAST. History: Abdominal pain Comparison:None. Procedure: Contiguous axial images of the abdomen and pelvis were performed after the administration of 75 cc of Isovue 370 IV contrast and without oral contrast. CT Abdomen with contrast: Findings: Liver: Unremarkable Spleen: Unremarkable Pancreas: Unremarkable Adrenal Glands: Unremarkable Kidneys: Unremarkable There is no mass or lymphadenopathy. There is no free air. There is no free fluid. There has been prior cholecystectomy. CT Pelvis with Contrast: Findings: The urinary bladder appears normal. There is a trace of free fluid. There is no lymphadenopathy. There is a 3.5 x 3.7 cm cyst in the left adnexa. The uterus is not seen and could be small or surgically removed. The appendix is not seen. Impression: 1. Cystic mass in the left adnexa likely of ovarian origin. Assuming the patient is not a 2-3 month follow-up ultrasound is recommended. 2. Trace of free fluid in the pelvis likely physiologic. End impression PQRS Compliance Statement: One or more of the following individualized dose reduction techniques were utilized for this examination: 1. Automated exposure control 2. Adjustment of the mA and/or kV according to patient size 3. Use of iterative reconstruction technique Electronically signed by: Mohan Turpin III, MD (04/18/2019 6:33 PM) [facility]
[2019-04-18 18:45] VITALS: BP 115/67
== END 2019-04-18 19:00 | disposition home or self-care (01) ==
LOC: ER 16:01
DX: N83.202 Unspecified ovarian cyst, left side (principal); R11.0 Nausea; R19.7 Diarrhea, unspecified; G43.909 Migraine, unspecified, not intractable, without status migrainosus; G89.29 Other chronic pain; Z90.89 Acquired absence of other organs; Z90.49 Acquired absence of other specified parts of digestive tract; Z90.710 Acquired absence of both cervix and uterus; Z98.51 Tubal ligation status; Z88.0 Allergy status to penicillin; Z88.1 Allergy status to other antibiotic agents
CPT/HCPCS: 36415; 74177; 80053; 85025; 96361; 96374; 96375; 99285; J2405; J3010; J7030; Q9967

== ENCOUNTER 2019-05-14 09:18 | Emergency (ER) | payer MEDICAID ==
[~2019-05-14] VITALS: Ht 170.2 cm; Wt 69.9 kg
[2019-05-14] MEDS ORDERED: NITR100C62 PO (09:39)
[2019-05-14 10:11] LABS: BILIRUBIN,URINE NEGATIVE (NEG); CLARITY,URINE CLEAR; COLOR,URINE YELLOW; NITRITE,URINE NEGATIVE (NEG); PROTEIN,URINE NEGATIVE (NEG-TRACE); UROBILINOGEN,URINE 0.2 mg/dL (0.2 mg/dL)
[2019-05-14] MEDS ORDERED: MORPHINE SULFATE 2 MG/ML VIAL. IV ONE (10:15)
[2019-05-14] MEDS ORDERED: ONDANSETRON PF 4 MG/2 ML VIAL. IV ONE (10:15)
[2019-05-14] MEDS ORDERED: KETOROLAC 30 MG/ML VIAL. IVP ONE (10:15)
[2019-05-14 10:20] LABS: BASO % 1 % (0-3); EOS # 0.1 x10^3/uL (0.0-0.7); EOS % 3 % (0-3); HEMATOCRIT 37.4 % (36.0-47.0); HEMOGLOBIN 12.8 g/dL (12.0-15.5); LYMPH # 1.3 x10^3/uL (1.0-4.8); LYMPH % 32 % (24-48); MEAN CORPUSCULAR HEMOGLOBIN 32 pg (25-35); MEAN CORPUSCULAR HGB CONC 34 g/dL (31-37); MEAN CORPUSCULAR VOLUME 94 fL (79-100); MONO # 0.3 x10^3/uL (0.0-1.1); MONO % 8 % (0-9); NEUT # 2.2 x10^3/uL (1.8-7.7); NEUT % 56 % (31-73); PLATELET COUNT 182 x10^3/uL (140-400); RED BLOOD COUNT 3.99 x10^6/uL (3.50-5.40)
[2019-05-14 10:25] LABS: BACTERIA,URINE MANY /HPF (0-FEW); SQUAMOUS EPITHELIAL CELL,UR MANY /LPF
[2019-05-14 10:26] LABS: RBC,URINE 0 /HPF (0-2)
[2019-05-14 10:30] LABS: CALCIUM 9.1 mg/dL (8.5-10.1); CREATININE 0.8 mg/dL (0.6-1.0); POTASSIUM 4.1 mmol/L (3.5-5.1)
[2019-05-14 10:38] LABS: ALBUMIN/GLOBULIN RATIO 1.2 (1.0-1.7); TOTAL BILIRUBIN 0.5 mg/dL (0.2-1.0); TOTAL PROTEIN 7.4 g/dL (6.4-8.2)
--- NOTE | 2019-05-14 10:52 | PHYS DOC ---
Past Medical History Past Medical History: Endometriosis, Migraines, Ovarian Cyst, UTI, Other Additional Past Medical Histor: SEPSIS,OVARIAN CYSTS, CHRONIC BACK PAIN Past Surgical History: Appendectomy, Cholecystectomy, Hysterectomy, Tubal ligation, Other Additional Past Surgical Histo: LAPAROSCOPY X3,ABD SURG/MASS,OVARY REMOVED, D&C Alcohol Use: Occasionally Drug Use: Marijuana Adult General Chief Complaint Chief Complaint: ABDOMINAL PAIN HPI HPI Patient is a 28 year old female who presents to the ED today to be evaluated for UTI, patient states she was diagnosed with UTI on Monday last week. She states she was put on MicroBid. She states yesterday she received a call from the PCPs office informing her she has Escherichia coli in her urine she states she was instructed to come to the ED to be evaluated. Patient states she has chronic pain to the left lower quadrant due to ovarian cyst and endometriosis which she follows up with Dr. Hampton. Patient denies any nausea, vomiting. She rates her pain at 8 out of 10 right now, she describes the pain as sharp and constant. Denies any fever. Review of Systems Review of Systems Constitutional: Denies fever or chills [] Eyes: Denies change in visual acuity, redness, or eye pain [] HENT: Denies nasal congestion or sore throat [] Respiratory: Denies cough or shortness of breath [] Cardiovascular: No additional information not addressed in HPI [] GI: Reports chronic left lower quadrant abdominal pain, denies nausea, vomiting, bloody stools or diarrhea [] : Denies dysuria or hematuria [] Musculoskeletal: Denies back pain or joint pain [] Integument: Denies rash or skin lesions [] Neurologic: Denies headache, focal weakness or sensory changes [] All other systems were reviewed and found to be within normal limits, except as documented in this note. Current Medications Current Medications Current Medications Medications (Trade) Dose Ordered Sig/[facility] Start Time Stop Time Status Last Admin Dose Admin Ketorolac Tromethamine (Toradol 30mg Vial) 30 mg 1X ONCE 05/14/19 10:15 05/14/19 10:16 DC 05/14/19 10:20 30 MG Morphine Sulfate (Morphine Sulfate) 2 mg 1X ONCE 05/14/19 10:15 05/14/19 10:16 DC 05/14/19 10:18 2 MG Ondansetron HCl (Zofran) 4 mg 1X ONCE 05/14/19 10:15 05/14/19 10:16 DC 05/14/19 10:17 4 MG Allergies Allergies Allergies Coded Allergies Type Severity Reaction Last Updated Verified Penicillins Allergy Unknown 11/17/18 Yes amoxicillin Allergy Unknown 11/17/18 Yes cefaclor Allergy Unknown 11/17/18 Yes Physical Exam Physical Exam Constitutional: Well developed, well nourished, no acute distress, non-toxic appearance. [] HENT: Normocephalic, atraumatic, bilateral external ears normal, oropharynx m oist, no oral exudates, nose normal. [] Eyes: PERRLA, EOMI, conjunctiva normal, no discharge. [] Neck: Normal range of motion, no tenderness, supple, no stridor. [] Cardiovascular:Heart rate regular rhythm, no murmur [] Lungs & Thorax: Bilateral breath sounds clear to auscultation [] Abdomen: Bowel sounds normal, soft, no tenderness, no masses, no pulsatile masses. [] Skin: Warm, dry, no erythema, no rash. [] Back: No tenderness, no CVA tenderness. [] Extremities: No tenderness, no cyanosis, no clubbing, ROM intact, no edema. [] Neurologic: Alert and oriented X 3, normal motor function, normal sensory function, no focal deficits noted. [] Psychologic: Affect normal, judgement normal, mood normal. [] Current Patient Data Vital Signs Vital Signs Date Time Temp Pulse Resp B/P (MAP) Pulse Ox O2 Delivery O2 Flow Rate FiO2 05/14/19 10:18 16 99 Room Air 05/14/19 09:23 97.6 88 121/73 (89) 97.6 Lab Values Laboratory Tests Test 05/14/19 09:23 05/14/19 09:27 05/14/19 10:10 Urine Collection Type Unknown Urine Color Yellow Urine Clarity Clear Urine pH 8.0 Urine Specific [place] 1.010 Urine Protein Negative mg/dL (NEG-TRACE) Urine Glucose (UA) Negative mg/dL (NEG) Urine Ketones (Stick) Negative mg/dL (NEG) Urine Blood Negative (NEG) Urine Nitrite Negative (NEG) Urine Bilirubin Negative (NEG) Urine Urobilinogen Dipstick 0.2 mg/dL (0.2 mg/dL) Urine Leukocyte Esterase Negative (NEG) Urine RBC 0 /HPF (0-2) Urine WBC 1-4 /HPF (0-4) Urine Squamous Epithelial Cells Many /LPF Urine Bacteria Many /HPF (0-FEW) POC Urine HCG, Qualitative Hcg negative (Negative) White Blood Count 4.0 x10^3/uL (4.0-11.0) Red Blood Count 3.99 x10^6/uL (3.50-5.40) Hemoglobin 12.8 g/dL (12.0-15.5) Hematocrit 37.4 % (36.0-47.0) Mean Corpuscular Volume 94 fL (79-100) Mean Corpuscular Hemoglobin 32 pg (25-35) Mean Corpuscular Hemoglobin Concent 34 g/dL (31-37) Red Cell Distribution Width 12.0 % (11.5-14.5) Platelet Count 182 x10^3/uL (140-400) Neutrophils (%) (Auto) 56 % (31-73) Lymphocytes (%) (Auto) 32 % (24-48) Monocytes (%) (Auto) 8 % (0-9) Eosinophils (%) (Auto) 3 % (0-3) Basophils (%) (Auto) 1 % (0-3) Neutrophils # (Auto) 2.2 x10^3/uL (1.8-7.7) Lymphocytes # (Auto) 1.3 x10^3/uL (1.0-4.8) Monocytes # (Auto) 0.3 x10^3/uL (0.0-1.1) Eosinophils # (Auto) 0.1 x10^3/uL (0.0-0.7) Basophils # (Auto) 0.0 x10^3/uL (0.0-0.2) Sodium Level 139 mmol/L (136-145) Potassium Level 4.1 mmol/L (3.5-5.1) Chloride Level 105 mmol/L (98-107) Carbon Dioxide Level 28 mmol/L (21-32) Anion Gap 6 (6-14) Blood Urea Nitrogen 12 mg/dL (7-20) Creatinine 0.8 mg/dL (0.6-1.0) Estimated GFR (Cockcroft-Gault) 86.0 BUN/Creatinine Ratio 15 (6-20) Glucose Level 94 mg/dL (70-99) Calcium Level 9.1 mg/dL (8.5-10.1) Total Bilirubin 0.5 mg/dL (0.2-1.0) Aspartate Amino Transferase (AST) 16 U/L (15-37) Alanine Aminotransferase (ALT) 19 U/L (14-59) Alkaline Phosphatase 58 U/L (46-116) Total Protein 7.4 g/dL (6.4-8.2) Albumin 4.0 g/dL (3.4-5.0) Albumin/Globulin Ratio 1.2 (1.0-1.7) Lipase 57 U/L (73-393) L Laboratory Tests 05/14/19 10:10 Laboratory Tests 05/14/19 10:10 EKG EKG [] Radiology/Procedures Radiology/Procedures [] Course & Med Decision Making Course & Med Decision Making Pertinent Labs and Imaging studies reviewed. (See chart for details) This is a 28-year-old female patient presenting to the ED today to be evaluated for UTI. Patient was diagnosed with UTI on Monday and was started on Macrobid which she still on. She was informed yesterday her urine was positive for Escherichia coli and sent to the ED today. Patient is afebrile. CBC with a normal WBC, CMP with no acute findings, urine analysis is negative for leukocytes, negative for nitrites. Patient was discharged to home. Encouraged to continue taking the Macrobid. Follow-up with PCP in 1-2 weeks. Dragon Disclaimer Dragon Disclaimer This electronic medical record was generated, in whole or in part, using a voice recognition dictation system. Departure Departure Impression: Primary Impression: Abdominal pain, LLQ Disposition: 01 HOME, SELF-CARE Condition: STABLE Referrals: OLIVER ELLIS PA-C (PCP) Follow-up with your primary care doctor as well as Dr. Hampton Patient Instructions: Abdominal Pain Additional Instructions: You were evaluated in the emergency room, we encourage you to continue taking Macrobid until completed. Your urine has no infection in the Ed. You CBC and CMP had not acute findings. Follow-up with Dr. Hampton for endometriosis and ovarian cyst. ECTOR ARCHER APRN May 14, 2019 10:52
[2019-05-14 10:59] VITALS: BP 104/72
== END 2019-05-14 11:22 | disposition home or self-care (01) ==
LOC: ER 09:18
DX: G89.29 Other chronic pain (principal); R10.32 Left lower quadrant pain; Z87.440 Personal history of urinary (tract) infections; G43.909 Migraine, unspecified, not intractable, without status migrainosus; Z90.89 Acquired absence of other organs; Z90.49 Acquired absence of other specified parts of digestive tract; Z90.710 Acquired absence of both cervix and uterus; Z98.51 Tubal ligation status; Z88.0 Allergy status to penicillin; Z88.1 Allergy status to other antibiotic agents
CPT/HCPCS: 36415; 80053; 81001; 81025; 83690; 85025; 87086; 96374; 96375; 99284; J1885; J2270; J2405

== ENCOUNTER 2019-06-20 09:44 | Emergency (ER) | payer MEDICAID ==
[~2019-06-20] VITALS: Ht 170.2 cm; Wt 68.9 kg
[2019-06-20 10:08] VITALS: BP 111/68
--- NOTE | 2019-06-20 10:29 | PHYS DOC ---
Past Medical History Past Medical History: Endometriosis, Migraines, Ovarian Cyst, UTI, Other Additional Past Medical Histor: SEPSIS,OVARIAN CYSTS, CHRONIC BACK PAIN Past Surgical History: Appendectomy, Cholecystectomy, Hysterectomy, Tubal ligation, Other Additional Past Surgical Histo: LAPAROSCOPY X3,ABD SURG/MASS,OVARY REMOVED, D&C Alcohol Use: Occasionally Drug Use: Marijuana Adult General Chief Complaint Chief Complaint: TOE PROBLEM HPI HPI Patient is a 28 year old female who presents to the ED today concerned she could have an ingrown right great toenail for 2 months. Patient denies any drainage. Review of Systems Review of Systems Constitutional: Denies fever or chills [] Musculoskeletal: Ingrown toenail Integument: Denies rash or skin lesions [] Neurologic: Denies headache, focal weakness or sensory changes [] All other systems were reviewed and found to be within normal limits, except as documented in this note. Allergies Allergies Allergies Coded Allergies Type Severity Reaction Last Updated Verified Penicillins Allergy Unknown 11/17/18 Yes amoxicillin Allergy Unknown 11/17/18 Yes cefaclor Allergy Unknown 11/17/18 Yes Physical Exam Physical Exam Constitutional: Well developed, well nourished, no acute distress, non-toxic appearance. [] Skin: Warm, dry, bilateral tonsils with nail tamazight, right great toe with no obvious swelling, no erythema, slight tenderness on palpation of the lateral dis cornelius nail bed of the right great toe, no obvious ingrown toenail noted no drainage. Back: No tenderness, no CVA tenderness. [] Extremities: No tenderness, no cyanosis, no clubbing, ROM intact, no edema. [] Neurologic: Alert and oriented X 3, normal motor function, normal sensory function, no focal deficits noted. [] Psychologic: Affect normal, judgement normal, mood normal. [] EKG EKG [] Radiology/Procedures Radiology/Procedures [] Course & Med Decision Making Course & Med Decision Making Pertinent Labs and Imaging studies reviewed. (See chart for details) This is a 28-year-old female patient presenting to the ED today complaining of ingrown toenail to the right great toe. The area was examined, no signs of infection the toenails have been cut well. Recommended soaking the foot in warm water with Epsom salts twice a day for 1 week. Discussed ways of filing the nail as well as recommended prevent cases of ingrown toenails. Follow-up with primary care doctor. She is currently on MicroBid for chronic UTIs. Dragon Disclaimer Dragon Disclaimer This electronic medical record was generated, in whole or in part, using a voice recognition dictation system. Departure Departure Impression: Primary Impression: Ingrown right big toenail Disposition: HOME, SELF-CARE Condition: STABLE Referrals: OLIVER ELLIS PA-C (PCP) Follow-up in 1-2 weeks Patient Instructions: Ingrown Toenail-SportsMed Additional Instructions: You were evaluated in the emergency room for ingrown toenails. As discussed soak the right foot in warm water with Epsom salts twice a day. Avoid cutting deep into the nailbed, monitor the area for any signs of infection including but not limited to increased redness, warmth, yellow drainage from the area and return to the ED if they occur. ECTOR ARCHER APRN Jun 20, 2019 10:29
== END 2019-06-20 10:42 | disposition home or self-care (01) ==
LOC: ER 09:44
DX: L60.0 Ingrowing nail (principal); G43.909 Migraine, unspecified, not intractable, without status migrainosus; G89.29 Other chronic pain; Z88.0 Allergy status to penicillin; Z88.1 Allergy status to other antibiotic agents; Z88.8 Allergy status to other drugs, medicaments and biological substances
CPT/HCPCS: 99281

== ENCOUNTER → 2019-06-21 | Outpatient (CLI) | payer MEDICAID ==
[2019-06-20 10:08] VITALS: BP 111/68
--- NOTE | 2019-06-21 16:47 | KCIC ---
EXAM: Pelvic sonogram. HISTORY: Ovarian cyst. TECHNIQUE: Sonographic imaging of the pelvis was performed. COMPARISON: CT dated 04/18/2019. FINDINGS: The uterus and right ovary is surgically absent. The left ovary contains a complex septated cyst measuring 5.2 x 4.9 x 4.8 cm. The surrounding left ovarian parenchyma demonstrates normal blood flow. There is no pelvic free fluid. IMPRESSION: 1. 5.2 cm complex left ovarian cyst with internal septation. 2. Surgically absent uterus and right ovary. Electronically signed by: Radha Carolina MD (06/21/2019 4:44 PM) [place] [id number]
== END | disposition home or self-care (01) ==
LOC: KCIC US 15:28
PROVIDERS: ATTEND Obstetrics & Gynecology
DX: N83.202 Unspecified ovarian cyst, left side (principal); Z90.710 Acquired absence of both cervix and uterus
CPT/HCPCS: 76856

== ENCOUNTER 2019-07-12 10:14 | Day surgery (SDC) | payer MEDICAID ==
[~2019-07-12] VITALS: Ht 170.2 cm; Wt 70.0 kg
[2019-07-12] MEDS: IV RINGERS,LACTATED 1000ML 1,000 ML IV SCH ×2 (07:00→13:44)
[~2019-07-12 10:14] MED LIST changes: +AMIT75TA PO; +AZTREONAM IV Push 1 GM VIAL. IVP SCH; +BUPIVACAINE-EPI 0.25%-1:200000 MPF 30 ML VIAL. ONE; +CLINDAMYCIN 900MG PREMIX 50 ML IV PRN; +DEXAMETHASONE SOD PHOS 4 MG/ML VIAL ONE; +DICL75TA PO; +FAMOTIDINE 20 MG/2 ML VIAL ONE; +GLYCOPYRROLATE 1 MG/5 ML VIAL. ONE; +HYDROmorphone 2 MG/ML VIAL IV PRN; +KETOROLAC 30 MG/ML VIAL. ONE; +LIDOCAINE 1% PF 2 ML VIAL. ID PRN; +LIDOCAINE 2% PF 5 ML VIAL. ONE; +MIDAZOLAM HCL/PF 2 MG/2 ML VIAL. ONE; +MORPHINE SULFATE 2 MG/ML VIAL. IV PRN; +NEOSTIGMINE METHYLSULFATE 5 MG/5 ML SYRINGE. ONE; +ONDANSETRON PF 4 MG/2 ML VIAL. IV PRN; +ONDANSETRON PF 4 MG/2 ML VIAL. ONE; +PROCHLORPERAZINE 10 MG/2 ML VIAL. IV PRN; +PROPOFOL 20 ML IV ONE; +ROCURONIUM 50 MG/5 ML VIAL. ONE; +SEVOFLURANE 61 TO 120 MINUTES. IH ONE; +SURGICEL HEMOSTAT 4X8 EACH. ONE; +TIZA4TAB8 PO; +fentaNYL PF VIAL 100 MCG/2 ML VIAL IV PRN; +fentaNYL PF VIAL 100 MCG/2 ML VIAL ONE
--- NOTE | 2019-07-12 13:25 | PDOC ---
BRIEF OPERATIVE NOTE Date: Jul 12, 2019 Pre-Op Diagnosis WILFRIDO Cyst Post-Op Diagnosis Same Procedure Performed [facility] WILFRIDO Cystectomy Surgeon Dr. Garcia Nurse Supervisor Munitions Handler: Patience Anesthesia Type: General Blood Loss 10 ml Specimens Obtained WILFRIDO cyst wall Findings WILFRIDO cyst 4 cm size/complex Complications none Operative Note see dictation LULU GARCIA Jr, MD Jul 12, 2019 13:25
--- NOTE | 2019-07-12 13:28 | DISCH ---
DISCHARGE INSTRUCTIONS Condition on Discharge Condition on Discharge: Stable Activity After Discharge Activity Instructions for Disc: Activity as tolerated Lifting Instructions after Dis: No heavy lifting Driving Instructions after Dis: Do not drive today Diet after Discharge Diet after Discharge: Regular Contacting the DRCorey after DC Call your doctor for: Concerns you may have Follow-Up Follow up with: Dr. Garcia in 1 wk LULU GARCIA Jr, MD Jul 12, 2019 13:28
[2019-07-12] MEDS: fentaNYL PF VIAL 100 MCG/2 ML VIAL IV PRN ×2 (13:45→14:26)
--- NOTE | 2019-07-12 13:59 | OP ---
DATE OF SURGERY: PREOPERATIVE DIAGNOSIS: Left ovarian cyst. POSTOPERATIVE DIAGNOSIS: Left ovarian cyst. PROCEDURE: Laparoscopic left ovarian cystectomy. SURGEON: Lulu Garcia MD PHARMACY SERVICES REPRESENTATIVE: Naina. ANESTHESIA: GETA. ESTIMATED BLOOD LOSS: 10 mL. COMPLICATIONS: None. FINDINGS: Left ovarian complex cyst about 4 cm size. SUMMARY: A 28-year-old female with a history of endometriosis and persistent left ovarian cyst of about 3-4 cm size. The patient was counseled on risks, benefits and expectations of laparoscopic left ovarian cystectomy, possible resection of endometriosis if present. The patient voiced clear understanding and desired to proceed. DESCRIPTION OF PROCEDURE: The patient was taken to surgery suite and placed in dorsal lithotomy position. She was prepped with Betadine solution for vaginal prep and ChloraPrep for abdominal prep. After adequate anesthesia, small transverse skin incision was made just below the umbilicus with a scalpel. The Veress needle was then placed through the infraumbilical incision site. The abdomen was allowed to insufflate up to 1-1/2 liters of CO2 gas. The Veress needle was then removed. A 5 mm trocar was placed. Left ovary was visualized and had a complex cyst with sidewall adhesions. Remainder of the pelvic cavity and abdominal cavity was normal. There was no evidence of endometriosis that was visibly seen. Two additional incisions were made in the left lower quadrant in which a 5 mm trocar was placed as well as 8 mm trocar with the aid of graspers and the EndoShears with cautery. The ovarian cyst wall was excised. The remaining ovarian cyst wall was fulgurated using cautery. Suction irrigation was utilized to verify good hemostasis. Small amount of normal saline was left in posterior cul-de-sac. The trocars were then removed under direct visualization. The abdomen was allowed to deflate as much as possible along with mechanical manipulation. The three skin incisions were reapproximated using 4-0 Vicryl suture in subcuticular manner. A 0.25% Marcaine with epinephrine was injected at each incision site. The sponge stick was also removed at the end of the case. The patient tolerated the procedure well and was taken to recovery room in stable condition. Sponge and needle count correct x 3. LULU GARCIA MD DR: FANNY/rahat JOB#: [id number] / [id number]
[2019-07-12] MEDS ORDERED: oxyCODONE/APAP 5/325 1 TAB TABLET PO ONE ×2 (14:00)
[2019-07-12] MEDS ORDERED: OXYC-325 PO (14:02)
[2019-07-12 14:42] VITALS: BP 100/55
--- NOTE | 2019-07-15 16:06 | PATHOLOGY ---
[facility] Accession Number: [id number] . 01 Material submitted: . ovary - LEFT OVARIAN CYST WALL CAPSULE. Modifiers: left . 01 Clinical history: . Left ovarian cyst . 02 Diagnosis: Left ovarian cyst wall capsule: - Fragments of ovary in a background of hemorrhage with hemosiderin-laden macrophages. - Cystic follicle. - Negative for malignancy. - See comment. LBQ 07/15/2019 1249 Local . 02 Comment: Fragments of ovary are present in a background of hemorrhage with associated hemosiderin-laden macrophages. These findings, while not definitive, suggest the presence of a hemorrhagic cyst. The differential diagnosis would include a hemorrhagic corpus luteum cyst and endometriosis. Clinical correlation is recommended. (MAP/db; 07/15/19) . 02 Electronically signed: . Schuyler Andrew MD, Pathologist NPI- [id number] . 01 Gross description: . The specimen is received in formalin, labeled "Jennifer Fernandes, left ovarian cyst wall capsule". Received are multiple segments of pink-salgado, shaggy soft tissue admixed with capsular tissue measuring 2.2 x 1.0 x 0.5 cm in aggregate dimensions. The specimen is submitted entirely in cassette A1. (CAA; 07/14/2019) QAC/QAC 07/14/2019 1027 Local . 02 Pathologist provided ICD-10: N83.02 . 02 CPT . 861867 Specimen Comment: A courtesy copy of this report has been sent to [phone], [phone] Specimen Comment: [id number] Specimen Comment: Report sent to / DR ELLIS Performed at: 01 [facility] [address] [place] [address] [place], [place] [id number] MD Omar Lynn MD Phone: [phone] Performed at: [address] [id number] MD Brad Malcolm MD Phone: [phone]
== END 2019-07-12 15:40 | disposition home or self-care (01) ==
LOC: SURG 10:14
PROVIDERS: ATTEND Obstetrics & Gynecology
DX: N83.02 Follicular cyst of left ovary (principal); K21.9 Gastro-esophageal reflux disease without esophagitis; M79.7 Fibromyalgia; F41.9 Anxiety disorder, unspecified; F31.9 Bipolar disorder, unspecified; Z90.710 Acquired absence of both cervix and uterus; Z90.721 Acquired absence of ovaries, unilateral; Z98.51 Tubal ligation status; Z87.891 Personal history of nicotine dependence; Z90.49 Acquired absence of other specified parts of digestive tract; Z87.440 Personal history of urinary (tract) infections
CPT/HCPCS: 58662; 88305; A7015; J0780; J1100; J1885; J2001; J2250; J2405; J2704; J2710; J3010; J3490; J7030; J7120

== ENCOUNTER 2019-09-03 13:44 | Emergency (ER) | payer MEDICAID ==
[~2019-09-03] VITALS: Ht 167.6 cm; Wt 69.5 kg
[~2019-09-03 13:44] MED LIST changes: -AZTREONAM IV Push 1 GM VIAL. IVP SCH; -BUPIVACAINE-EPI 0.25%-1:200000 MPF 30 ML VIAL. ONE; -CLINDAMYCIN 900MG PREMIX 50 ML IV PRN; -DEXAMETHASONE SOD PHOS 4 MG/ML VIAL ONE; -FAMOTIDINE 20 MG/2 ML VIAL ONE; -GLYCOPYRROLATE 1 MG/5 ML VIAL. ONE; -HYDROmorphone 2 MG/ML VIAL IV PRN; -KETOROLAC 30 MG/ML VIAL. ONE; -LIDOCAINE 1% PF 2 ML VIAL. ID PRN; -LIDOCAINE 2% PF 5 ML VIAL. ONE; -MIDAZOLAM HCL/PF 2 MG/2 ML VIAL. ONE; -MORPHINE SULFATE 2 MG/ML VIAL. IV PRN; -NEOSTIGMINE METHYLSULFATE 5 MG/5 ML SYRINGE. ONE; -ONDANSETRON PF 4 MG/2 ML VIAL. IV PRN; -ONDANSETRON PF 4 MG/2 ML VIAL. ONE; +OXYC-325 PO; -PROCHLORPERAZINE 10 MG/2 ML VIAL. IV PRN; -PROPOFOL 20 ML IV ONE; -ROCURONIUM 50 MG/5 ML VIAL. ONE; -SEVOFLURANE 61 TO 120 MINUTES. IH ONE; -SURGICEL HEMOSTAT 4X8 EACH. ONE; -fentaNYL PF VIAL 100 MCG/2 ML VIAL IV PRN; -fentaNYL PF VIAL 100 MCG/2 ML VIAL ONE
[2019-09-03 14:30] VITALS: BP 132/65
--- NOTE | 2019-09-03 15:03 | PHYS DOC ---
Past Medical History Past Medical History: Endometriosis, Migraines, Ovarian Cyst, UTI, Other Additional Past Medical Histor: SEPSIS,OVARIAN CYSTS, CHRONIC BACK PAIN Past Surgical History: Appendectomy, Cholecystectomy, Hysterectomy, Tubal ligation, Other Additional Past Surgical Histo: LAPAROSCOPY X3,ABD SURG/MASS,OVARY REMOVED, D&C Smoking Status: Current Every Day Smoker Alcohol Use: Occasionally Drug Use: Marijuana Adult General Chief Complaint Chief Complaint: LOWER EXT PAIN [facility] HPI Patient is a 28 year old female who presents after she slipped on ice in the end of July and has been having right knee and right ankle pain ever since t hat time. She complains of pain to her medial knee. She also states that the anterior portion of her calf started hurting 3 days ago. The patient has an MRI scheduled in 1 week. The patient rates her pain is 9 out of 10 in severity. The patient has a pretty extensive surgical medical history for 28-year-old. The patient has a history of 2 D&Cs, 1 appendectomy, one gallbladder, 4 diagnostic exploratory surgeries, tubal ligation, partial hysterectomy, and additional surgery that removed her right ovary. The patient also has a history of sepsis. She states that she has been close consultation with her primary care doctor regarding this issue. Per patient, he suggested that she probably should come to the ER to have a blood clot ruled out. Review of Systems Review of Systems Constitutional: Denies fever or chills [] Eyes: Denies change in visual acuity, redness, or eye pain [] HENT: Denies nasal congestion or sore throat [] Respiratory: Denies cough or shortness of breath [] Cardiovascular: No additional information not addressed in HPI [] GI: Denies abdominal pain, nausea, vomiting, bloody stools or diarrhea [] : Denies dysuria or hematuria [] Musculoskeletal: Reports medial right knee and ankle pain. Integument: Denies rash or skin lesions [] Neurologic: Denies headache, focal weakness or sensory changes [] Endocrine: Denies polyuria or polydipsia [] Complete systems were reviewed and found to be within normal limits, except as documented in this note. Current Medications Current Medications Current Medications Medications (Trade) Dose Ordered Sig/Florencia Start Time Stop Time Status Last Admin Dose Admin Ketorolac Tromethamine (Toradol) 10 mg 1X STAT 09/03/19 14:59 3/3/20 15:03 DC Allergies Allergies Allergies Coded Allergies Type Severity Reaction Last Updated Verified Penicillins Allergy Intermediate Hives 07/12/19 Yes amoxicillin Allergy Intermediate Hives 07/12/19 Yes cefaclor Allergy Intermediate Hives 07/12/19 Yes Physical Exam Physical Exam Constitutional: Well developed, well nourished, no acute distress, non-toxic appearance. [] HENT: Normocephalic, atraumatic, bilateral external ears normal, oropharynx moist, no oral exudates, nose normal. [] Abdomen: Bowel sounds normal, soft, no tenderness, no masses, no pulsatile masses. [] Skin: Warm, dry, no erythema, no rash. [] Back: No tenderness, no CVA tenderness. [] Extremities: Tenderness to R medial knee, and anterior lower extremity. Neurologic: Alert and oriented X 3, normal motor function, normal sensory function, no focal deficits noted. [] Psychologic: Affect normal, judgement normal, mood normal. [] Current Patient Data Vital Signs Vital Signs Date Time Temp Pulse Resp B/P (MAP) Pulse Ox O2 Delivery O2 Flow Rate FiO2 09/03/19 14:30 99.7 92 18 132/65 (87) 97 Room Air 99.7 EKG EKG [] Radiology/Procedures Radiology/Procedures [][facility] [address] [place] [address] IMAGING REPORT Signed PATIENT: DILLON SULLIVAN ACCOUNT: [id number] : 1990 LOCATION: ER AGE: 28 SEX: F EXAM STATUS: REG ER ORD. PHYSICIAN: DHAVAL MCCAULEY APRN REASON: R lower extremity pain PROCEDURE: VENOUS LOWER EXTREMITY RIGHT Right lower extremity venous duplex study 09/03/2019 3:31 PM Clinical History: Right lower extremity pain Technique: Using a combination of real time ultrasound imaging and color-flow and pulse Doppler imaging techniques, including spectral analysis, graded compression and augmentation, duplex evaluation of the deep venous system of the right lower extremity was performed. Multiple images were obtained. Findings: There is no sonographic evidence of deep venous thrombosis involving the visualized deep venous structures of the right lower extremity Impression: No evidence of deep venous thrombosis involving the right lower extremity Electronically signed by: Juan David Granda MD (09/03/2019 3:31 PM) [id number] DICTATED and SIGNED BY: JUAN DAVID GRANDA MD DATE: 09/03/19 1531 Course & Med Decision Making Course & Med Decision Making Pertinent Labs and Imaging studies reviewed. (See chart for details) Her primary care doctor sent her over here for a rule out blood clot. Will order a venous ultrasound of her right lower extremity. The ultrasound was negative. We will discharge home to follow-up with her primary care doctor. Dragon Disclaimer Dragon Disclaimer This electronic medical record was generated, in whole or in part, using a voice recognition dictation system. Departure Departure Impression: Primary Impression: Lower extremity pain Disposition: HOME, SELF-CARE Condition: STABLE Referrals: OLIVER ELLIS PA-C (PCP) Additional Instructions: Thank you for visiting [facility]. We appreciate you trusting us with your care. If any additional problems come up don't hesitate to return to visit us. Please follow up with your primary care provider so they can plan additional care if needed and know about the problem that you had. If symptoms worsen come back to the Emergency Department. Any concerning symptoms that start such as chest pain, shortness of air, weakness or numbness on one side of the body, running high fevers or any other concerning symptoms return to the ER. Problem Qualifiers Primary Impression: Lower extremity pain Laterality: right Qualified Codes: M79.604 - Pain in right leg MCCAULEYDHAVAL DELONG SUDHEER Sep 03, 2019 15:03
--- NOTE | 2019-09-03 15:34 | RAD ---
Right lower extremity venous duplex study 09/03/2019 3:31 PM Clinical History: Right lower extremity pain Technique: Using a combination of real time ultrasound imaging and color-flow and pulse Doppler imaging techniques, including spectral analysis, graded compression and augmentation, duplex evaluation of the deep venous system of the right lower extremity was performed. Multiple images were obtained. Findings: There is no sonographic evidence of deep venous thrombosis involving the visualized deep venous structures of the right lower extremity Impression: No evidence of deep venous thrombosis involving the right lower extremity Electronically signed by: Juan David Mcarthur MD (09/03/2019 3:31 PM) [id number]
[2019-09-03] MEDS: KETOROLAC TROMETHAMINE 10 MG TABLET PO STA (16:08)
== END 2019-09-03 16:09 | disposition home or self-care (01) ==
LOC: ER 13:44
DX: M25.511 Pain in right shoulder (principal); M25.571 Pain in right ankle and joints of right foot; G43.909 Migraine, unspecified, not intractable, without status migrainosus; G89.29 Other chronic pain; Z90.89 Acquired absence of other organs; Z90.49 Acquired absence of other specified parts of digestive tract; Z90.710 Acquired absence of both cervix and uterus; Z98.51 Tubal ligation status; F17.200 Nicotine dependence, unspecified, uncomplicated; Z88.0 Allergy status to penicillin; Z88.1 Allergy status to other antibiotic agents; Z88.8 Allergy status to other drugs, medicaments and biological substances
CPT/HCPCS: 93971; 99284-25

== ENCOUNTER 2019-09-24 11:31 | Emergency (ER) | payer MEDICAID ==
[~2019-09-24] VITALS: Ht 167.6 cm; Wt 69.0 kg
[2019-09-24] MEDS ORDERED: CYCLOBENZAPRINE 10 MG TABLET. PO ONE (12:15)
[2019-09-24 12:18] LABS: BILIRUBIN,URINE NEGATIVE (NEG); CLARITY,URINE CLEAR; COLOR,URINE YELLOW; NITRITE,URINE NEGATIVE (NEG); PROTEIN,URINE NEGATIVE (NEG-TRACE)
--- NOTE | 2019-09-24 12:23 | PHYS DOC ---
Past Medical History Past Medical History: Endometriosis, Migraines, Ovarian Cyst, UTI, Other Additional Past Medical Histor: SEPSIS,OVARIAN CYSTS, CHRONIC BACK PAIN Past Surgical History: Appendectomy, Cholecystectomy, Hysterectomy, Tubal ligation, Other Additional Past Surgical Histo: LAPAROSCOPY X3,ABD SURG/MASS,OVARY REMOVED, D&C Smoking Status: Current Every Day Smoker Alcohol Use: Occasionally Drug Use: Marijuana Adult General Chief Complaint Chief Complaint: ABDOMINAL PAIN HPI HPI Patient is a 28 year old female with history of ovarian cyst, sepsis, chronic back pain, migraine headache, frequent UTI, hysterectomy and right oophorectomy, appendectomy, cholecystectomy, frequent emergency room visit who presents with complaining of abdominal pain. Patient complaining of upper and lower abdominal pain for the last 4 days as a constant sharp pain which 3 or 4 episodes of diarrhea yesterday without having a bowel movement today. Patient denies fever and chills, vaginal discharge, urinary symptoms, anorexia. Patient states she had the same pain previously with diagnosis of ovarian cyst in July. Patient states she called her SANDBLAST OPERATOR who recommended come to ER. Review of Systems Review of Systems Constitutional: Denies fever or chills [] Eyes: Denies change in visual acuity, redness, or eye pain [] HENT: Denies nasal congestion or sore throat [] Respiratory: Denies cough or shortness of breath [] Cardiovascular: No additional information not addressed in HPI [] GI: Reports abdominal pain, nausea, denies vomiting, bloody stools or diarrhea [] : Denies dysuria or hematuria [] Musculoskeletal: Denies back pain or joint pain [] Integument: Denies rash or skin lesions [] Neurologic: Denies headache, focal weakness or sensory changes [] Endocrine: Denies polyuria or polydipsia [] All other systems were reviewed and found to be within normal limits, except as documented in this note. Current Medications Current Medications Current Medications Medications (Trade) Dose Ordered Sig/Florencia Start Time Stop Time Status Last Admin Dose Admin Cyclobenzaprine HCl (Flexeril) 10 mg 1X ONCE 09/24/19 12:15 09/24/19 12:16 DC 09/24/19 12:30 10 MG Fentanyl Citrate (Fentanyl 2ml Vial) 50 mcg 1X ONCE 09/24/19 13:45 09/24/19 13:46 DC 09/24/19 13:48 50 MCG Sodium Chloride 1,000 ml @ 1,000 mls/hr Q1H 09/24/19 13:37 09/24/19 14:36 DC 09/24/19 13:49 1,000 MLS/HR Allergies Allergies Physical Exam Physical Exam Constitutional: Well developed, well nourished, mild distress, non-toxic appearance. [] HENT: Normocephalic, atraumatic. Eyes: PERRLA, EOMI, conjunctiva normal, no discharge. [] Neck: Normal range of motion, no tenderness, supple, no stridor. [] Cardiovascular:Heart rate regular rhythm, no murmur [] Lungs & Thorax: Bilateral breath sounds clear to auscultation [] Abdomen: Bowel sounds normal, soft, left lower quadrant guarding , no masses, no pulsatile masses. [] Skin: Warm, dry, no erythema, no rash. [] Back: No tenderness, no CVA tenderness. [] Extremities: No tenderness, no cyanosis, no clubbing, ROM intact, no edema. [] Neurologic: Alert and oriented X 3, no focal deficits noted. [] Psychologic: Affect normal, judgement normal, mood normal. [] Current Patient Data Vital Signs Vital Signs Date Time Temp Pulse Resp B/P (MAP) Pulse Ox O2 Delivery O2 Flow Rate FiO2 09/24/19 13:56 115/56 (75) 09/24/19 13:48 18 99 Room Air 09/24/19 12:17 90 09/24/19 11:43 97.7 97.7 Lab Values Laboratory Tests Test 09/24/19 11:50 09/24/19 12:42 Urine Collection Type Unknown Urine Color Yellow Urine Clarity Clear Urine pH 8.0 (<5.0-8.0) Urine Specific [place] 1.025 (1.000-1.030) Urine Protein Negative mg/dL (NEG-TRACE) Urine Glucose (UA) Negative mg/dL (NEG) Urine Ketones (Stick) Negative mg/dL (NEG) Urine Blood Negative (NEG) Urine Nitrite Negative (NEG) Urine Bilirubin Negative (NEG) Urine Urobilinogen Dipstick 1.0 mg/dL (0.2 mg/dL) Urine Leukocyte Esterase Negative (NEG) Urine RBC Occ /HPF (0-2) Urine WBC 1-4 /HPF (0-4) Urine Squamous Epithelial Cells Many /LPF Urine Bacteria Few /HPF (0-FEW) Urine Mucus Marked /LPF White Blood Count 8.7 x10^3/uL (4.0-11.0) Red Blood Count 4.06 x10^6/uL (3.50-5.40) Hemoglobin 12.9 g/dL (12.0-15.5) Hematocrit 38.2 % (36.0-47.0) Mean Corpuscular Volume 94 fL (79-100) Mean Corpuscular Hemoglobin 32 pg (25-35) Mean Corpuscular Hemoglobin Concent 34 g/dL (31-37) Red Cell Distribution Width 12.1 % (11.5-14.5) Platelet Count 206 x10^3/uL (140-400) Neutrophils (%) (Auto) 78 % (31-73) H Lymphocytes (%) (Auto) 15 % (24-48) L Monocytes (%) (Auto) 6 % (0-9) Eosinophils (%) (Auto) 1 % (0-3) Basophils (%) (Auto) 0 % (0-3) Neutrophils # (Auto) 6.7 x10^3/uL (1.8-7.7) Lymphocytes # (Auto) 1.3 x10^3/uL (1.0-4.8) Monocytes # (Auto) 0.5 x10^3/uL (0.0-1.1) Eosinophils # (Auto) 0.1 x10^3/uL (0.0-0.7) Basophils # (Auto) 0.0 x10^3/uL (0.0-0.2) Sodium Level 141 mmol/L (136-145) Potassium Level 4.1 mmol/L (3.5-5.1) Chloride Level 103 mmol/L (98-107) Carbon Dioxide Level 26 mmol/L (21-32) Anion Gap 12 (6-14) Blood Urea Nitrogen 11 mg/dL (7-20) Creatinine 0.7 mg/dL (0.6-1.0) Estimated GFR (Cockcroft-Gault) 100.4 BUN/Creatinine Ratio 16 (6-20) Glucose Level 83 mg/dL (70-99) Calcium Level 8.8 mg/dL (8.5-10.1) Total Bilirubin 0.8 mg/dL (0.2-1.0) Aspartate Amino Transferase (AST) 23 U/L (15-37) Alanine Aminotransferase (ALT) 30 U/L (14-59) Alkaline Phosphatase 71 U/L (46-116) Total Protein 7.1 g/dL (6.4-8.2) Albumin 3.9 g/dL (3.4-5.0) Albumin/Globulin Ratio 1.2 (1.0-1.7) Laboratory Tests 09/24/19 12:42 Laboratory Tests 09/24/19 12:42 EKG EKG [] Radiology/Procedures Radiology/Procedures [facility] [address] [place] [address] IMAGING REPORT Signed PATIENT: DILLON SULLIVAN ACCOUNT: [id number] : 1990 LOCATION: ER AGE: 28 SEX: F EXAM STATUS: REG ER ORD. PHYSICIAN: NATHALIA JEAN MD REASON: History of hyster & RT oophor 2016, LT pelvic pain PROCEDURE: PELVIS W/TV Examination: PELVIS W/TV History: Left pelvic pain. Comparison/Correlation: 06/21/2019 pelvic ultrasound exam, 04/18/2019 CT abdomen and pelvis with contrast Findings: Transabdominal and transvaginal pelvic ultrasound exam was performed. Hysterectomy is noted. Right nephrectomy also evident. Left ovary measures 6.3 cm x 6.0 x 5.4 cm. Complex left adnexal cystic structure measuring 5.6 cm x 5.4 cm x 4.9 cm present. It is heterogeneous in appearance with unremarkable flow. Pelvic free fluid measuring 4.9 cm x 4.9 cm x 2.5 cm present and may be physiologic. Vaginal cuff is unremarkable. Impression: Complex cystic structure involving the left ovary. This may correspond with the finding on the prior CT and prior ultrasound exam. It is greater in its solid appearing components as compared to the prior exams. Correlate for underlying endometrioma, neoplastic process, or other process. Electronically signed by: Jovan Edwards MD (09/24/2019 1:22 PM) [id number] DICTATED and SIGNED BY: JOVAN EDWARDS MD DATE: 09/24/19 1322 Course & Med Decision Making Course & Med Decision Making Pertinent Labs and Imaging studies reviewed. (See chart for details) Evaluation of patient in ER showed 28-year-old male patient with history of hysterectomy and right colectomy presented to ER with complaining of left lower quadrant pain for 4 days. Patient had guarding quadrant and ultrasound shows 6 cm left ovarian complex mass. on-call SANDBLAST OPERATOR was informed at 1315 and did not 1500 and plan to see patient in ER. He presented in ER at 1517 and evaluated the patient and recommended to admit patient for surgery today.Patient requiring admission for further evaluation and treatment. Discussed with Dr. Dr Brown who is in agreement with admission. Discussed findings and plan with patient and family, who acknowledge understanding and agreement. Dragon Disclaimer Dragon Disclaimer This electronic medical record was generated, in whole or in part, using a voice recognition dictation system. Departure Departure Impression: Primary Impression: Abdominal pain, LLQ Additional Impression: Ovarian cyst, left Disposition: 09 ADMITTED INPATIENT (at [address] Brown) Condition: IMPROVED Referrals: OLIVER ELLIS PA-C (PCP) Problem Qualifiers NATHALIA JEAN MD Sep 24, 2019 12:22
[2019-09-24 12:29] LABS: BACTERIA,URINE FEW /HPF (0-FEW); RBC,URINE OCC /HPF (0-2)
[2019-09-24 12:30] LABS: SQUAMOUS EPITHELIAL CELL,UR MANY /LPF
--- NOTE | 2019-09-24 13:25 | RAD ---
Examination: PELVIS W/TV History: Left pelvic pain. Comparison/Correlation: 06/21/2019 pelvic ultrasound exam, 04/18/2019 CT abdomen and pelvis with contrast Findings: Transabdominal and transvaginal pelvic ultrasound exam was performed. Hysterectomy is noted. Right nephrectomy also evident. Left ovary measures 6.3 cm x 6.0 x 5.4 cm. Complex left adnexal cystic structure measuring 5.6 cm x 5.4 cm x 4.9 cm present. It is heterogeneous in appearance with unremarkable flow. Pelvic free fluid measuring 4.9 cm x 4.9 cm x 2.5 cm present and may be physiologic. Vaginal cuff is unremarkable. Impression: Complex cystic structure involving the left ovary. This may correspond with the finding on the prior CT and prior ultrasound exam. It is greater in its solid appearing components as compared to the prior exams. Correlate for underlying endometrioma, neoplastic process, or other process. Electronically signed by: Jovan Dee MD (09/24/2019 1:22 PM) [id number]
[2019-09-24] MEDS ORDERED: IV NORMAL SALINE 1000ML BAG 1,000 ML IV SCH ×2 (13:37→16:10)
[2019-09-24] MEDS ORDERED: fentaNYL PF VIAL 100 MCG/2 ML VIAL IVP ONE (13:45)
[2019-09-24 14:07] LABS: BASO % 0 % (0-3); EOS # 0.1 x10^3/uL (0.0-0.7); EOS % 1 % (0-3); HEMATOCRIT 38.2 % (36.0-47.0); HEMOGLOBIN 12.9 g/dL (12.0-15.5); LYMPH # 1.3 x10^3/uL (1.0-4.8); LYMPH % 15 % (24-48); MEAN CORPUSCULAR HEMOGLOBIN 32 pg (25-35); MEAN CORPUSCULAR HGB CONC 34 g/dL (31-37); MEAN CORPUSCULAR VOLUME 94 fL (79-100); MONO # 0.5 x10^3/uL (0.0-1.1); MONO % 6 % (0-9); NEUT # 6.7 x10^3/uL (1.8-7.7); NEUT % 78 % (31-73); PLATELET COUNT 206 x10^3/uL (140-400); RED BLOOD COUNT 4.06 x10^6/uL (3.50-5.40); RED CELL DISTRIBUTION WIDTH 12.1 % (11.5-14.5); WHITE BLOOD COUNT 8.7 x10^3/uL (4.0-11.0)
[2019-09-24 14:18] LABS: CALCIUM 8.8 mg/dL (8.5-10.1); CREATININE 0.7 mg/dL (0.6-1.0); GFR 100.4; POTASSIUM 4.1 mmol/L (3.5-5.1)
[2019-09-24 14:23] LABS: ALBUMIN 3.9 g/dL (3.4-5.0); ALBUMIN/GLOBULIN RATIO 1.2 (1.0-1.7); TOTAL BILIRUBIN 0.8 mg/dL (0.2-1.0); TOTAL PROTEIN 7.1 g/dL (6.4-8.2)
[2019-09-24] MEDS ORDERED: PROPOFOL 20 ML IV ONE (16:10)
[2019-09-24] MEDS ORDERED: LIDOCAINE 2% PF 5 ML VIAL. ONE (16:10)
[2019-09-24] MEDS ORDERED: ROCURONIUM 50 MG/5 ML VIAL. ONE (16:11)
[2019-09-24] MEDS ORDERED: SUCCINYLCHOLINE 200 MG/10 ML VIAL. ONE (16:11)
--- NOTE | 2019-09-24 16:11 | PDOC1 ---
History and Physical Date of Admission Date of Admission DATE: 09/24/19 TIME: 16:05 Identification/Chief Complaint Chief Complaint pelvic pain Source Source: Chart review, Patient History of Present Illness History of Present Illness 28 y/o with pelvic pain started 3 days ago that continued to worsen. Pain is worse with movement. Pelvic sono with moderate amount fluid and complex WILFRIDO cyst 6 cm size. Past Surgical History Past Surgical History: Appendectomy, Cholecystectomy, , Tubal Ligation, Hysterectomy Current Medications Current Medications Current Medications Cyclobenzaprine HCl (Flexeril) 10 mg 1X ONCE PO Last administered on 09/24/19at 12:30; Start 09/24/19 at 12:15; Stop 09/24/19 at 12:16; Status DC Sodium Chloride 1,000 ml @ 1,000 mls/hr Q1H IV Last administered on 09/24/19at 13:49; Start 09/24/19 at 13:37; Stop 09/24/19 at 14:36; Status DC Fentanyl Citrate (Fentanyl 2ml Vial) 50 mcg 1X ONCE IVP Last administered on 09/24/19at 13:48; Start 09/24/19 at 13:45; Stop 09/24/19 at 13:46; Status DC Active Scripts Active Reported Percocet 5-325 mg Tablet (Oxycodone HCl/Acetaminophen) 1 Each Tablet 1-2 Tab PO PRN Q4-6HRS PRN MDD 12 Tablet(s) 3 Days Allergies Allergies: Coded Allergies: Penicillins (Verified Allergy, Intermediate, Hives, 09/24/19) amoxicillin (Verified Allergy, Intermediate, Hives, 09/24/19) cefaclor (Verified Allergy, Intermediate, Hives, 09/24/19) ROS General: YES: Chills, Fatigue; No: Night Sweats, Malaise, Appetite, Other PSYCHOLOGICAL ROS: YES: Anxiety; No: Behavioral Disorder, Concentration difficultie, Decreased libido, Depression, Disorientation, Hallucinations, Hostility, Irritablity, Memory difficulties, Mood Swings, Obsessive thoughts, Physical abuse, Sexual abuse, Sleep disturbances, Suicidal ideation, Other Eyes: No Blurry vision, No Decreased vision, No Double vision, No Dry eyes, No Excessive tearing, No Eye Pain, No Itchy Eyes, No Loss of vision, No Photophobia, No Scotomata, No Uses contacts, No Uses glasses, No Other HEENT: No: Heacaches, Visual Changes, Hearing change, Nasal congestion, Nasal discharge, Oral lesions, Sinus pain, Sore Throat, Epistaxis, Sneezing, Snoring, Tinnitus, Vertigo, Vocal changes, Other ALLERGY AND IMMUNOLOGY: No: Hives, Insect Bite Sensitivity, Itchy/Watery Eyes, Nasal Congestion, Post Nasal Drip, Seasonal Allergies, Other Hematological and Lymphatic: No: Bleeding Problems, Blood Clots, Blood Tr ansfusions, Brusing, Night Sweats, Pallor, Swollen Lymph Nodes, Other ENDOCRINE: No: Breast Changes, Galactorrhea, Hair Pattern Changes, Hot Flashes, Malaise/lethargy, Mood Swings, Palpitations, Polydipsia/polyuria, Skin Changes, Temperature Intolerance, Unexpected Weight Changes, Other Breast: No New/Changing Breast Lumps, No Nipple changes, No Nipple discharge, No Other Respiratory: No: Cough, Hemoptysis, Orthopnea, Pleuritic Pain, Shortness of breath, SOB with excertion, Sputum Changes, Stridor, Tachypnea, Wheezing, Other Cardiovascular: No Chest Pain, No Palpitations, No Orthopnea, No Paroxysmal Noc. Dyspnea, No Edema, No Lt Headedness, No Other Gastrointestinal: Yes Abdominal Pain Physical Exam General: Alert, Oriented X3, Cooperative, moderate distress HEENT: Atraumatic Lungs: Clear to auscultation Heart: S1S2 Breasts: Normal Abdomen: Normal bowel sounds, Other (LLQ pain with rebound tenderness) Psych/Mental Status: Mental status NL Vitals Vitals Vital Signs Date Time Temp Pulse Resp B/P (MAP) Pulse Ox O2 Delivery O2 Flow Rate FiO2 09/24/19 13:56 115/56 (75) 09/24/19 13:48 18 99 Room Air 09/24/19 12:17 90 09/24/19 11:43 97.7 97.7 Labs Labs Laboratory Tests Test 09/24/19 11:50 09/24/19 12:42 Urine Collection Type Unknown Urine Color Yellow Urine Clarity Clear Urine pH 8.0 (<5.0-8.0) Urine Specific [place] 1.025 (1.000-1.030) Urine Protein Negative mg/dL (NEG-TRACE) Urine Glucose (UA) Negative mg/dL (NEG) Urine Ketones (Stick) Negative mg/dL (NEG) Urine Blood Negative (NEG) Urine Nitrite Negative (NEG) Urine Bilirubin Negative (NEG) Urine Urobilinogen Dipstick 1.0 mg/dL (0.2 mg/dL) Urine Leukocyte Esterase Negative (NEG) Urine RBC Occ /HPF (0-2) Urine WBC 1-4 /HPF (0-4) Urine Squamous Epithelial Cells Many /LPF Urine Bacteria Few /HPF (0-FEW) Urine Mucus Marked /LPF White Blood Count 8.7 x10^3/uL (4.0-11.0) Red Blood Count 4.06 x10^6/uL (3.50-5.40) Hemoglobin 12.9 g/dL (12.0-15.5) Hematocrit 38.2 % (36.0-47.0) Mean Corpuscular Volume 94 fL (79-100) Mean Corpuscular Hemoglobin 32 pg (25-35) Mean Corpuscular Hemoglobin Concent 34 g/dL (31-37) Red Cell Distribution Width 12.1 % (11.5-14.5) Platelet Count 206 x10^3/uL (140-400) Neutrophils (%) (Auto) 78 % (31-73) Lymphocytes (%) (Auto) 15 % (24-48) Monocytes (%) (Auto) 6 % (0-9) Eosinophils (%) (Auto) 1 % (0-3) Basophils (%) (Auto) 0 % (0-3) Neutrophils # (Auto) 6.7 x10^3/uL (1.8-7.7) Lymphocytes # (Auto) 1.3 x10^3/uL (1.0-4.8) Monocytes # (Auto) 0.5 x10^3/uL (0.0-1.1) Eosinophils # (Auto) 0.1 x10^3/uL (0.0-0.7) Basophils # (Auto) 0.0 x10^3/uL (0.0-0.2) Sodium Level 141 mmol/L (136-145) Potassium Level 4.1 mmol/L (3.5-5.1) Chloride Level 103 mmol/L (98-107) Carbon Dioxide Level 26 mmol/L (21-32) Anion Gap 12 (6-14) Blood Urea Nitrogen 11 mg/dL (7-20) Creatinine 0.7 mg/dL (0.6-1.0) Estimated GFR (Cockcroft-Gault) 100.4 BUN/Creatinine Ratio 16 (6-20) Glucose Level 83 mg/dL (70-99) Calcium Level 8.8 mg/dL (8.5-10.1) Total Bilirubin 0.8 mg/dL (0.2-1.0) Aspartate Amino Transf (AST/SGOT) 23 U/L (15-37) Alanine Aminotransferase (ALT/SGPT) 30 U/L (14-59) Alkaline Phosphatase 71 U/L (46-116) Total Protein 7.1 g/dL (6.4-8.2) Albumin 3.9 g/dL (3.4-5.0) Albumin/Globulin Ratio 1.2 (1.0-1.7) Laboratory Tests Test 09/24/19 11:50 09/24/19 12:42 Urine Collection Type Unknown Urine Color Yellow Urine Clarity Clear Urine pH 8.0 (<5.0-8.0) Urine Specific [place] 1.025 (1.000-1.030) Urine Protein Negative mg/dL (NEG-TRACE) Urine Glucose (UA) Negative mg/dL (NEG) Urine Ketones (Stick) Negative mg/dL (NEG) Urine Blood Negative (NEG) Urine Nitrite Negative (NEG) Urine Bilirubin Negative (NEG) Urine Urobilinogen Dipstick 1.0 mg/dL (0.2 mg/dL) Urine Leukocyte Esterase Negative (NEG) Urine RBC Occ /HPF (0-2) Urine WBC 1-4 /HPF (0-4) Urine Squamous Epithelial Cells Many /LPF Urine Bacteria Few /HPF (0-FEW) Urine Mucus Marked /LPF White Blood Count 8.7 x10^3/uL (4.0-11.0) Red Blood Count 4.06 x10^6/uL (3.50-5.40) Hemoglobin 12.9 g/dL (12.0-15.5) Hematocrit 38.2 % (36.0-47.0) Mean Corpuscular Volume 94 fL (79-100) Mean Corpuscular Hemoglobin 32 pg (25-35) Mean Corpuscular Hemoglobin Concent 34 g/dL (31-37) Red Cell Distribution Width 12.1 % (11.5-14.5) Platelet Count 206 x10^3/uL (140-400) Neutrophils (%) (Auto) 78 % (31-73) Lymphocytes (%) (Auto) 15 % (24-48) Monocytes (%) (Auto) 6 % (0-9) Eosinophils (%) (Auto) 1 % (0-3) Basophils (%) (Auto) 0 % (0-3) Neutrophils # (Auto) 6.7 x10^3/uL (1.8-7.7) Lymphocytes # (Auto) 1.3 x10^3/uL (1.0-4.8) Monocytes # (Auto) 0.5 x10^3/uL (0.0-1.1) Eosinophils # (Auto) 0.1 x10^3/uL (0.0-0.7) Basophils # (Auto) 0.0 x10^3/uL (0.0-0.2) Sodium Level 141 mmol/L (136-145) Potassium Level 4.1 mmol/L (3.5-5.1) Chloride Level 103 mmol/L (98-107) Carbon Dioxide Level 26 mmol/L (21-32) Anion Gap 12 (6-14) Blood Urea Nitrogen 11 mg/dL (7-20) Creatinine 0.7 mg/dL (0.6-1.0) Estimated GFR (Cockcroft-Gault) 100.4 BUN/Creatinine Ratio 16 (6-20) Glucose Level 83 mg/dL (70-99) Calcium Level 8.8 mg/dL (8.5-10.1) Total Bilirubin 0.8 mg/dL (0.2-1.0) Aspartate Amino Transf (AST/SGOT) 23 U/L (15-37) Alanine Aminotransferase (ALT/SGPT) 30 U/L (14-59) Alkaline Phosphatase 71 U/L (46-116) Total Protein 7.1 g/dL (6.4-8.2) Albumin 3.9 g/dL (3.4-5.0) Albumin/Globulin Ratio 1.2 (1.0-1.7) VTE Prophylaxis Ordered VTE Prophylaxis Devices: No VTE Pharmacological Prophylaxi: No Assessment/Plan Assessment/Plan A: WILFRIDO Complex Cyst with acute abdomen P: LPSC WILFRIDO Cystectomy. LULU COLON Jr, MD Sep 24, 2019 16:11
[2019-09-24] MEDS ORDERED: DEXAMETHASONE SOD PHOS 4 MG/ML VIAL ONE (16:12)
[2019-09-24] MEDS ORDERED: ONDANSETRON PF 4 MG/2 ML VIAL. ONE (16:12)
[2019-09-24] MEDS ORDERED: MIDAZOLAM HCL/PF 2 MG/2 ML VIAL. ONE (16:14)
[2019-09-24] MEDS ORDERED: fentaNYL PF VIAL 100 MCG/2 ML VIAL ONE ×2 (16:14→16:51)
[2019-09-24] MEDS ORDERED: fentaNYL PF VIAL 100 MCG/2 ML VIAL IV PRN ×3 (16:15→18:15)
[2019-09-24] MEDS ORDERED: CLINDAMYCIN 900MG PREMIX 50 ML IV ONE (16:15)
[2019-09-24] MEDS ORDERED: NEOSTIGMINE METHYLSULFATE 5 MG/5 ML SYRINGE. ONE (16:59)
[2019-09-24] MEDS ORDERED: GLYCOPYRROLATE 1 MG/5 ML VIAL. ONE (16:59)
[2019-09-24] MEDS ORDERED: BUPIVACAINE-EPI 0.25%-1:200000 MPF 30 ML VIAL. INJ ONE (17:00)
--- NOTE | 2019-09-24 17:40 | PDOC ---
BRIEF OPERATIVE NOTE Date: Sep 24, 2019 Pre-Op Diagnosis Pelvic pain Ruptured Corpus Luteum Cyst Post-Op Diagnosis SAme Procedure Performed [facility] Cystectomy Surgeon Dr. Garcia Anesthesia Type: General Blood Loss 100 ml Specimens Obtained WILFRIDO Cyst wall Findings Ruptured WILFRIDO corpus luteum cyst, pelvic sidewall adhesions Complications none Operative Note see dictation LULU GARCIA Jr, MD Sep 24, 2019 17:40
--- NOTE | 2019-09-24 17:41 | DISCH ---
DISCHARGE INSTRUCTIONS Condition on Discharge Condition on Discharge: Stable Activity After Discharge Activity Instructions for Disc: Activity as tolerated Lifting Instructions after Dis: No heavy lifting Driving Instructions after Dis: Do not drive today Diet after Discharge Diet after Discharge: Regular Contacting the DRCorey after DC Call your doctor for: Concerns you may have Follow-Up Follow up with: Dr. Garcia in 1 week LULU GARCIA Jr, MD Sep 24, 2019 17:41
[2019-09-24] MEDS ORDERED: OXYC1TAB19 PO (17:56)
[2019-09-24] MEDS ORDERED: HYDROmorphone 2 MG/ML VIAL IV PRN (18:15)
[2019-09-24] MEDS ORDERED: PROCHLORPERAZINE 10 MG/2 ML VIAL. IV PRN ×2 (18:15)
[2019-09-24] MEDS ORDERED: MORPHINE SULFATE 2 MG/ML VIAL. IV PRN (18:15)
[2019-09-24] MEDS ORDERED: ONDANSETRON PF 4 MG/2 ML VIAL. IVP PRN (18:15)
[2019-09-24] MEDS ORDERED: IV RINGERS,LACTATED 1000ML 1,000 ML IV SCH (18:15)
[2019-09-24] MEDS ORDERED: oxyCODONE/APAP 7.5/325 1 TAB TABLET PO ONE ×2 (18:15)
[2019-09-24 18:55] VITALS: BP 109/68
--- NOTE | 2019-09-24 19:15 | OP ---
DATE OF SURGERY: 09/24/2019 PREOPERATIVE DIAGNOSES: 1. Pelvic pain. 2. Ruptured corpus luteal cyst. POSTOPERATIVE DIAGNOSES: 1. Pelvic pain. 2. Ruptured corpus luteal cyst. PROCEDURE: Laparoscopic left ovarian cystectomy. SURGEON: Jose Garcia MD ANESTHESIA: GETA. ESTIMATED BLOOD LOSS: 100 mL, about 50 mL of blood clot in the abdominal cavity. FINDINGS: Ruptured left ovarian corpus luteal cyst, pelvic sidewall adhesions. COMPLICATIONS: None. SUMMARY: A 28-year-old female who presented with three days' worth of pelvic pain that continued to worsen. She had what appeared to be a ruptured corpus luteal cyst on pelvic ultrasound along with acute abdomen. She was counseled on the risks, benefits and expectations of laparoscopic left ovarian cystectomy and voiced clear understanding to proceed. DESCRIPTION OF PROCEDURE: The patient was taken to surgery suite and placed in dorsal lithotomy position, was prepped with Betadine solution for vaginal prep and ChloraPrep for abdominal prep. After adequate anesthesia, moist sponge stick was placed vaginally. Attention was then placed on abdomen. Small transverse skin incision was made just below the umbilicus with a scalpel. The Veress needle was then placed through the infraumbilical incision site. The abdomen was allowed to insufflate up to 1-1/2 liters CO2 gas. The Veress needle was then removed, 5 mm trocar was placed. Scope was positioned. There were pelvic sidewall adhesions. There was moderate amount of blood in the abdominal cavity, about 50 mL of blood and blood clot. Two additional incisions were made in the left lower quadrant in which a 5 mm trocar was placed along with the 11 mm trocar with the aid of graspers and the suction financial advisor device. The blood and blood clot was suctioned. The bowel was removed from the left ovary and the left ovary was also peeled away from the left pelvic sidewall using blunt dissection. The left ovarian cyst wall was removed with the aid of EnSeal device. The remaining left ovarian cyst wall was fulgurated using the spatula with cautery. The adhesions were removed as well. Interceed was placed over the capsule of the remaining left ovarian cyst wall as well as the left ovary. The area was hemostatic. Small amount of normal saline was left in posterior cul-de-sac. The trocars were then removed under direct visualization. The abdomen was allowed to deflate as much as possible along with mechanical manipulation. The 11 mm port site was closed at the fascial layer using 2-0 Vicryl suture in [id number] manner. The skin incisions were closed at the skin level. The three incisions were closed at the skin level using 4-0 Vicryl suture in subcuticular manner. A 0.25% Marcaine with epinephrine was injected at each incision site. Sponge stick was removed. The patient tolerated the procedure well and was taken to recovery room in stable condition. Sponge and needle count correct x 3. JOSE GARCIA MD DR: FANNY/rahat JOB#: [id number] / [id number]
--- NOTE | 2019-09-26 16:06 | PATHOLOGY ---
[facility] [place] Accession Number: [id number] . 01 Material submitted: . ovary - LEFT OVARIAN CYST WALL. Modifiers: left, wall . 01 Clinical history: . None provided . 02 Diagnosis: Segments of ovarian tissue, laparoscopic left ovarian cystectomy: - Corpus luteum cyst, clinically ruptured, showing hemorrhage and acute inflammation. - Ovarian capsular adhesions. - Simple serous cysts and cystic follicle of ovary. (JPM:physical instructor; 09/26/2019) MBR 09/26/2019 1400 Local . 02 Comment: There is no evidence of malignancy. (JPM:physical instructor; 09/26/2019) . 02 Electronically signed: . Brad Malcolm MD, Pathologist NPI- [id number] . 01 Gross description: . The specimen is received in formalin, labeled "Jennifer Fernandes, left ovarian cyst wall". Received are multiple segments of pale ca to salgado-ca soft tissue admixed with a moderate amount of blood coagulum measuring 5.5 x 5.4 x 1.5 cm in aggregate dimensions. No distinct nodules or lesions are noted grossly. The specimen is submitted representatively in cassettes A1 and A2. (CAA; 09/25/2019) QA/QA 09/25/2019 1552 Local . 02 Pathologist provided ICD-10: N83.12, N83.202, N83.02 . 02 CPT . 027233 Specimen Comment: A courtesy copy of this report has been sent to [phone] Specimen Comment: Report sent to / DR ELLIS Performed at: [address], [place], [place] [id number] MD Omar Lynn MD Phone: [phone] Performed at: 02 [facility] [address] [place] [id number] MD Brad Malcolm MD Phone: [phone]
[2019-10-08] MEDS ORDERED: DULO30CA2 PO (12:20)
[2019-10-08] MEDS ORDERED: DICL75TA PO (12:20)
[2019-10-08] MEDS ORDERED: TIZA4TAB2 PO (12:20)
[2019-10-08] MEDS ORDERED: AMIT75TA PO (12:20)
== END 2019-09-24 15:45 | disposition other institution (70) ==
LOC: ER 11:31 → 3 NORTH 15:25 → UNDOADMIN 15:25
DX: N83.202 Unspecified ovarian cyst, left side (principal); R19.7 Diarrhea, unspecified; G43.909 Migraine, unspecified, not intractable, without status migrainosus; G89.29 Other chronic pain; F17.200 Nicotine dependence, unspecified, uncomplicated; Z90.49 Acquired absence of other specified parts of digestive tract; Z90.89 Acquired absence of other organs; Z90.710 Acquired absence of both cervix and uterus; Z98.51 Tubal ligation status; Z90.721 Acquired absence of ovaries, unilateral
CPT/HCPCS: 36415; 58662; 76830; 76856; 80053; 81001; 85025; 88305; 96361; 96374; 99285; A7015; J0330; J0780; J1100; J2250; J2270; J2704; J2710; J3010; J3490; J7030; J7120; J2405

== ENCOUNTER → 2019-10-08 | Outpatient (CLI) | payer MEDICAID ==
[2019-09-24 18:55] VITALS: BP 109/68
[~2019-10-08] MED LIST changes: +BUPIVACAINE MPF 0.25% 10 ML VIAL. ONE; +DULO30CA2 PO; +OXYC1TAB19 PO; +TIZA4TAB2 PO; +methylPREDNISolone ACETATE 40 MG/ML VIAL. ONE
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
== END ==
LOC: PNCL 11:12
PROVIDERS: ATTEND Anesthesiology
DX: M79.18 Myalgia, other site (principal); Z87.891 Personal history of nicotine dependence; Z90.710 Acquired absence of both cervix and uterus; Z90.49 Acquired absence of other specified parts of digestive tract; Z98.51 Tubal ligation status; Z88.1 Allergy status to other antibiotic agents; Z88.8 Allergy status to other drugs, medicaments and biological substances; Z72.89 Other problems related to lifestyle
CPT/HCPCS: 20553; J1030; J3490

== ENCOUNTER → 2019-10-22 | Outpatient (CLI) | payer MEDICAID ==
[2019-09-24 18:55] VITALS: BP 109/68
--- NOTE | 2019-10-22 15:22 | PAIN ---
DATE OF SERVICE: 10/22/2019 PROGRESS NOTE FOR PAIN CLINIC DIAGNOSES: 1. Myofascial pain. 2. Cervicalgia with cervical degenerative disk disease. 3. Low back pain. HISTORY OF PRESENT ILLNESS: The patient is a 28-year-old female who returns for followup status post trigger point injections x 1, most recently on 10/08/2019. The patient reports she did very well with about 60% improvement overall with the trigger point injections significantly improved in the neck and upper back and shoulders, less so in the low back and lower extremities. The patient reports she has pain still in the base of the neck, shoulders, returning now over the past few days, but better for about 9-10 days, but now is returning in the upper back, mid back, low back, upper extremities, bilateral lower extremities with radiating pain from the hips and anterior thighs and posterior thighs into the feet as well. The patient describes the pain as a 9 on a scale of 10 at its worst over the past week, 7 on average, 5 at its least and is a 7 today. The patient describes it as aching, sharp, tight, shooting, tingling, burning in the arms and legs becoming stabbing in the back and neck, radiating, constant, becoming more severe in the low back, but on and off in intensity, worse with activity, worse with strenuous movements and repetitive motions. The patient reports it awakens him from sleep at night fairly often about every 5 hours or so. The patient reports no new motor or sensory deficits; however, no new bowel or bladder incontinence or other complaints. PHYSICAL EXAMINATION: VITAL SIGNS: The patient's blood pressure is 108/78, pulse 99, respirations 18, temperature is 98.2 degrees Fahrenheit, height is 5 feet 6 inches, weight is 153 pounds. GENERAL: The patient is awake, alert, oriented, appropriate, very pleasant demeanor. HEENT: Head shows normocephalic, atraumatic. Extraocular movements are intact and symmetrical. Oral cavity: Mucous membranes moist and pink. Dentition is intact. NECK: Shows anterior throat supple without palpable lymphadenopathy noted. Swallow reflex symmetrical. CHEST: Shows normal on inspection. Breath sounds are clear bilaterally. HEART: Shows S1, S2 clear. No murmurs auscultated. ABDOMEN: Soft, nontender, nondistended. No palpable organomegaly is noted. There is no rebound or guarding demonstrated. BACK: Shows spine grossly in the midline, normal-appearing cervical lordotic curvature, thoracic kyphotic curvature and lumbar lordotic curvature with palpation cervical paraspinous musculature shows very firm rope-like musculature, more on the left than the right in the inferior and middle aspect of the cervical paraspinous musculature into the superior medial trapezius bilaterally, again more tender on the left than the right, very firm rope-like musculature consistent with trigger point areas, but without specific radiation. The patient has good rotational motion of cervical spine, both laterally greater than 45 degrees closer to 90 degrees, full extension, full forward flexion without significant increase in pain. There is some fairly significant tenderness in the thoracic paraspinous musculature as well as the rhomboid distribution, again worse on the left than the right, very firm rope-like musculature, very tender with palpation directly with a positive jump sign on the left mid thoracic paraspinous musculature with deep compression and pressure and actual contraction of the muscle itself. Lumbar paraspinous muscle shows symmetrical on inspection, on palpation, it shows again diffuse lower lumbar only paraspinous musculature is very firm rope-like, very tender and consistent with trigger point areas of muscle bilaterally without specific radiation. The patient shows good rotational motion of lumbar spine, both laterally as well as extension and flexion without significant difficulty. EXTREMITIES: The patient's extremities show upper extremity deep tendon reflexes 2+ in the biceps, triceps tendons. Motor exam is strong with imaging scheduler strength rated at 5/5 as is bicep and tricep flexion. Lower extremities show deep tendon reflexes 2+ in the patellar, 1+ tendo-calcaneus tendons. Motor exam is strong with 5/5 dorsiflexion, extension, quadriceps and hamstring flexion and symmetrical. Peripheral pulses are 1+ posterior tibial, 2+ radial bilaterally and equal. Options were discussed with the patient. The patient's old chart was reviewed as her current medication regimen updated. Current review of systems updated today as well. We will proceed with trigger point injections of the identified musculature. Risks were discussed including but not limited to bleeding, infection, possibility of intravascular injection sequelae, spread of local anesthetic and numbness, pneumothorax, side effects of steroid medication and poor results regarding pain control. The patient understands and wished to proceed. The patient will return to clinic in approximately 2 weeks for followup. She was counseled on return appointment, activity level and side effects to be aware of. DIAGNOSIS: Myofascial pain. PROCEDURE: Trigger point injections, bilateral cervical paraspinous musculature, bilateral trapezius musculature, bilateral thoracic paraspinous musculature, bilateral lumbar paraspinous musculature under sterile prep and drape using local anesthetic. MEDICATION INJECTED: A total of 12 mL of 0.25% bupivacaine and 40 mg total of Depo-Medrol after negative aspiration at each injection site. CONDITION AT DISCHARGE: Stable. The patient tolerated procedure well, had no complications. ANNEMARIE AMADOR MD DR: RICK/rahat JOB#: [id number] / [id number]
== END ==
LOC: PNCL 13:07
PROVIDERS: ATTEND Anesthesiology
DX: M79.18 Myalgia, other site (principal); M50.30 Other cervical disc degeneration, unspecified cervical region
CPT/HCPCS: 20553; J1030; J3490

== ENCOUNTER → 2019-10-23 | Outpatient (CLI) | payer MEDICAID ==
[2019-09-24 18:55] VITALS: BP 109/68
[~2019-10-23] MED LIST changes: -BUPIVACAINE MPF 0.25% 10 ML VIAL. ONE; -methylPREDNISolone ACETATE 40 MG/ML VIAL. ONE
--- NOTE | 2019-10-23 11:19 | KCIC ---
Pelvic ultrasound HISTORY: Pelvic pain. Left ovarian cystectomy on September 24, 2019. Right ovary removal 2018. Prior hysterectomy. Transabdominal scan: No abnormality is seen in the region of the vaginal cuff. Limited visualization of the adnexa. Endovaginal scan: No abnormality is seen in the region of the vaginal cuff. Left ovary measures 4.1 x 2.7 x 4.2 cm with intact blood supply. Complex lesion identified within the left ovary measuring 2.9 x 2.4 x 3.3 cm, may represent a hemorrhagic cyst, demonstrates some peripheral vascularity but no significant concerning internal vascularity. Another hypoechoic smaller lesion measuring 14 x 12 x 18 mm, most likely a small cyst or dominant follicle. Right ovary is surgically absent. No significant free fluid is seen. IMPRESSION: 1. Heterogeneous left ovarian lesion measuring 3.3 cm, most likely a complex or hemorrhagic ovarian cyst. 2. Small left ovarian cyst or dominant follicle. 3. No evidence of free pelvic fluid. Electronically signed by: Schuyler Young MD (10/23/2019 11:16 AM) [facility]
== END | disposition home or self-care (01) ==
LOC: KCIC US 09:57
PROVIDERS: ATTEND Obstetrics & Gynecology
DX: N83.8 Other noninflammatory disorders of ovary, fallopian tube and broad ligament (principal); Z90.721 Acquired absence of ovaries, unilateral; Z90.710 Acquired absence of both cervix and uterus
CPT/HCPCS: 76830; 76856

== ENCOUNTER → 2019-12-10 | Outpatient (CLI) | payer MEDICAID ==
[~2019-12-10] MED LIST changes: +DULO60CA6 PO
--- NOTE | 2019-12-10 15:18 | KCIC ---
MRI Lumbar Spine without contrast History: Right leg pain for over one year, bilateral leg numbness Technique: Multiplanar, multi sequential noncontrast MR imaging was performed of the lumbar spine. Comparison: None Findings: Lumbar vertebral body stature and AP alignment are maintained. Conus terminates at L1. There is no significant marrow edema. Intervertebral disc spaces are maintained. There is no significant lumbar spinal stenosis or neural foramina compromise. There is no significant focal posterior disc abnormality. Not fully included, there is cystic focus of the visualized superior left pelvis at least 4 cm AP by 2.5 cm transverse. Impression: 1. No significant abnormality is identified of the lumbar spine. 2. There is cystic focus in the visualized left pelvis not fully evaluated, possibly adnexal cyst although better characterized by ultrasound. Electronically signed by: Randy Almanza MD (12/10/2019 3:15 PM) [id number]
== END ==
LOC: KCIC MRI 14:27
PROVIDERS: ATTEND Orthopaedic Surgery
DX: M54.12 Radiculopathy, cervical region (principal)
CPT/HCPCS: 72148

== ENCOUNTER → 2019-12-19 | Outpatient (CLI) | payer MEDICAID ==
[~2019-12-19] MED LIST changes: +IOHEXOL 180 MG/ML 10 ML VIAL. ONE; +methylPREDNISolone ACETATE 40 MG/ML VIAL. ONE; +methylPREDNISolone ACETATE 80 MG/ML VIAL. ONE
--- NOTE | 2019-12-19 12:52 | PAIN ---
DATE OF SERVICE: 12/19/2019 PROGRESS NOTE FOR PAIN CLINIC DIAGNOSES: 1. Myofascial pain. 2. Cervicalgia with cervical degenerative disk disease and cervical radiculopathy. 3. Low back pain. HISTORY OF PRESENT ILLNESS: The patient is a 29-year-old female who returns for followup status post trigger point injections, last seen 10/22/2019. The patient had trigger points on 10/08/2019 prior to that with about 60-70% improvement. The patient reports the pain is returning now, and is mainly in the base of the neck and now shooting into the right upper extremity, mostly in the posterior deltoid, posterior triceps region, forearm and into the fourth and fifth fingers on the right hand. The patient reports some on the left side as well, but mostly on the right. She has been dropping items with the right arm, and also has some pain in the right shoulder with weightbearing or repetitive motions, driving a car with her right arm. The patient reports the pain is a 9 on a scale of 10 at its worse over the past week, 8 on average, 6 at its least, also has pain in the low back and mid back as it was previously and pain down the legs, again worse on the right side in the lower extremity. The patient did have a new MRI scan, which is dated 12/10/2019 with no significant abnormality identified in the lumbar spine. The patient reports the pain is aching, sharp, dull, tight, shooting, tingling, burning, stabbing, radiating, severe, constant at times, worse with activity, keeps her awake from sleep about every 3-7 hours, but does awaken her from sleep with the neck and right upper extremity significantly as well as the midback and low back. The patient reports no loss of motor function, no bowel or bladder incontinence or other complaints. PHYSICAL EXAMINATION: VITAL SIGNS: The patient's blood pressure 111/73, pulse 84, respirations 18, temperature 98.8 degrees Fahrenheit, height is 5 feet 6 inches, weight is 156 pounds. GENERAL: The patient is awake, alert, oriented, appropriate, very pleasant demeanor. HEENT: Shows normocephalic, atraumatic. Extraocular movements are intact and symmetrical. Oral cavity shows mucous membranes moist and pink. Dentition is intact. NECK: Shows anterior throat supple without palpable lymphadenopathy noted. Swallow reflex symmetrical. CHEST: Shows normal on inspection. Breath sounds are clear bilaterally. HEART: Shows S1, S2 clear. No murmurs auscultated. ABDOMEN: Soft, nontender, nondistended. No palpable organomegaly is noted. No rebound or guarding demonstrated. BACK: Shows spine grossly in the midline, normal-appearing cervical lordotic curvature, thoracic kyphotic curvature and lumbar lordotic curvature. She has diffuse tenderness throughout the cervical paraspinous musculature bilaterally as well as the superior medial trapezius, worse on the right than the left, but without specific trigger points in this region. This is true into the thoracic paraspinous musculature as well as the upper, middle and lower distribution of paraspinous muscles in the lumbar distribution, worse on the right, again than the left, very firm rope-like musculature, however, in the lumbar distribution and consistent with trigger point areas of musculature bilaterally without specific radiation. Some mild tenderness over the posterior superior iliac spines bilaterally, but not over the sacroiliac regions or the sacrum itself with palpation. The patient has good rotational motion of cervical spine, both laterally as well as full extension, full forward flexion with some moderate pain with flexion to the right, but in the trapezius itself and not in the spine. The patient's low back shows good rotation greater than 10 degrees right and left as well as extension greater than 10 degrees, forward flexion 45 degrees with moderate pain involving all rotational movement including forward flexion. EXTREMITIES: The patient's upper extremities show deep tendon reflexes 2+ in the biceps, triceps tendons. Motor exam is strong with nuclear waste management engineer strength rated at 5/5 and equal. Lower extremities show deep tendon reflexes 2+ in the patellar and 1+ tendo-calcaneus tendons. Motor exam is strong as well with 5/5 dorsiflexion, extension, quadriceps and hamstring flexion. Peripheral pulses are 2+ radial, 1+ posterior tibia. No peripheral edema is noted in any of the extremities. Options were discussed with the patient. The patient's old chart was reviewed as her current medication regimen updated. Current review of systems updated today as well and we will proceed with a cervical epidural steroid injection today with fluoroscopic guidance. Risks were discussed including but not limited to bleeding, infection, possibility of epidural hematoma, subsequent neurological compromise, dural puncture, headaches, spinal cord and/or nerve damage, side effects of steroid medication and poor results regarding pain control. The patient understands and wished to proceed. The patient will return to clinic in approximately 2 weeks for followup. She was counseled on return appointment, activity level and side effects to be aware of. DIAGNOSES: Cervical radiculopathy with cervical degenerative disk disease. PROCEDURE: Cervical epidural steroid injection, translaminar approach C6-C7 level using C-arm fluoroscopic guidance under sterile prep and drape using local anesthetic. MEDICATION INJECTED: A total of 120 mg Depo-Medrol plus 5 mL of preservative-free normal saline and 2 mL of contrast. CONDITION AT DISCHARGE: Stable. The patient tolerated the procedure well, had no complications. ANNEMARIE AMADOR MD DR: RICK/nts JOB#: [id number] / [id number]
== END ==
LOC: PNCL 11:34
PROVIDERS: ATTEND Anesthesiology
DX: M50.123 Cervical disc disorder at C6-C7 level with radiculopathy (principal); M79.18 Myalgia, other site
CPT/HCPCS: 62321; J1030; J1040; Q9965

== ENCOUNTER 2019-12-28 22:13 | Emergency (ER) | payer MEDICAID ==
[~2019-12-28] VITALS: Ht 167.6 cm; Wt 70.0 kg
[~2019-12-28 22:13] MED LIST changes: -IOHEXOL 180 MG/ML 10 ML VIAL. ONE; -methylPREDNISolone ACETATE 40 MG/ML VIAL. ONE; -methylPREDNISolone ACETATE 80 MG/ML VIAL. ONE
[2019-12-28] MEDS ORDERED: KETOROLAC 30 MG/ML VIAL. ONE (23:09)
[2019-12-28 23:14] LABS: BILIRUBIN,URINE NEGATIVE (NEG); CLARITY,URINE CLEAR; COLOR,URINE YELLOW; NITRITE,URINE NEGATIVE (NEG); PROTEIN,URINE NEGATIVE (NEG-TRACE); UROBILINOGEN,URINE 0.2 mg/dL (0.2 mg/dL)
[2019-12-28] MEDS ORDERED: KETOROLAC 30 MG/ML VIAL. IVP ONE (23:15)
[2019-12-28 23:24] LABS: BACTERIA,URINE 0 /HPF (0-FEW); SQUAMOUS EPITHELIAL CELL,UR FEW /LPF
[2019-12-28 23:27] LABS: BASO % 0 % (0-3); EOS # 0.1 x10^3/uL (0.0-0.7); EOS % 1 % (0-3); HEMATOCRIT 36.7 % (36.0-47.0); HEMOGLOBIN 12.8 g/dL (12.0-15.5); LYMPH % 32 % (24-48); MEAN CORPUSCULAR HEMOGLOBIN 33 pg (25-35); MEAN CORPUSCULAR HGB CONC 35 g/dL (31-37); MEAN CORPUSCULAR VOLUME 94 fL (79-100); MONO # 0.6 x10^3/uL (0.0-1.1); MONO % 6 % (0-9); NEUT # 5.6 x10^3/uL (1.8-7.7); NEUT % 61 % (31-73); PLATELET COUNT 237 x10^3/uL (140-400); RED BLOOD COUNT 3.91 x10^6/uL (3.50-5.40); RED CELL DISTRIBUTION WIDTH 12.4 % (11.5-14.5); WHITE BLOOD COUNT 9.2 x10^3/uL (4.0-11.0)
--- NOTE | 2019-12-28 23:27 | PHYS DOC ---
Past Medical History Past Medical History: Endometriosis, Migraines, Ovarian Cyst, UTI, Other Additional Past Medical Histor: SEPSIS,OVARIAN CYSTS, CHRONIC BACK PAIN Past Surgical History: Appendectomy, Cholecystectomy, Hysterectomy, Tubal ligation, Other Additional Past Surgical Histo: LAPAROSCOPY X3,ABD SURG/MASS,OVARY REMOVED, D&C Smoking Status: Current Every Day Smoker Alcohol Use: Occasionally Drug Use: Marijuana General Adult EDM: Chief Complaint: ABDOMINAL PAIN HPI: HPI: 29-year-old female with past medical history of anxiety depression PTSD chronic back pain multiple abdominal surgeries presents with a chief complaint of left flank pain and left lower quad abdominal pain. Patient admits to drinking and smoking marijuana today. She was sitting in a lawn chair when she fell back. Patient states she injured her lower back and her lower abdomen. Patient states her abdomen feels bloated. Patient states she feels as if she has had a ruptured cyst. Patient has had multiple abdominal surgeries which include appen max cholecystectomy D&C x2 tubal hysterectomy removal of pelvic mass oophorectomy on the right removal of ovarian cyst on the left. Review of Systems: Review of Systems: Constitutional: Denies fever or chills. [] Eyes: Denies change in visual acuity. [] HENT: Denies nasal congestion or sore throat. [] Respiratory: Denies cough or shortness of breath. [] Cardiovascular: Denies chest pain or edema. [] GI: Positive abdominal pain : Denies dysuria. [] Musculoskeletal: Denies back pain or joint pain. [] Integument: Denies rash. [] Neurologic: Denies headache, focal weakness or sensory changes. [] Endocrine: Denies polyuria or polydipsia. [] Lymphatic: Denies swollen glands. [] Psychiatric: Denies depression or anxiety. [] Heart Score: Risk Factors: Risk Factors: DM, Current or recent (<one month) smoker, HTN, HLP, family history of CAD, obesity. Risk Scores: Score 0 - 3: 2.5% MACE over next 6 weeks - Discharge Home Score 4 - 6: 20.3% MACE over next 6 weeks - Admit for Clinical Observation Score 7 - 10: 72.7% MACE over next 6 weeks - Early Invasive Strategies Current Medications: Current Medications Medications (Trade) Dose Ordered Sig/Florencia Start Time Stop Time Status Last Admin Dose Admin Ketorolac Tromethamine (Toradol 30mg Vial) 30 mg STK-MED ONCE 12/28/19 23:09 12/28/19 23:10 DC Allergies: Allergies: Allergies Coded Allergies Type Severity Reaction Last Updated Verified Penicillins Allergy Intermediate Hives 09/24/19 Yes amoxicillin Allergy Intermediate Hives 09/24/19 Yes cefaclor Allergy Intermediate Hives 09/24/19 Yes Physical Exam: PE: Constitutional: Well developed, well nourished, no acute distress, non-toxic appearance. [] HENT: Normocephalic, atraumatic, bilateral external ears normal, oropharynx moist, no oral exudates, nose normal. [] Eyes: PERRLA, EOMI, conjunctiva normal, no discharge. [] Neck: Normal range of motion, no tenderness, supple, no stridor. [] Cardiovascular:Heart rate regular rhythm, no murmur [] Lungs & Thorax: Bilateral breath sounds clear to auscultation [] Abdomen: Bowel sounds normal, soft, no masses, no pulsatile masses. [tenderness llq no rebound or guarding] Skin: Warm, dry, no erythema, no rash. [] Back: No tenderness, no CVA tenderness. [] Extremities: No tenderness, no cyanosis, no clubbing, ROM intact, no edema. [] Neurologic: Alert and oriented X 3, normal motor function, normal sensory function, no focal deficits noted. [] Psychologic: Affect normal, judgement normal, mood normal. [] Current Patient Data: Vital Signs: Vital Signs Date Time Temp Pulse Resp B/P (MAP) Pulse Ox O2 Delivery O2 Flow Rate FiO2 12/28/19 22:30 98.2 107 18 130/68 (88) 99 Room Air 98.2 EKG: EKG: [] Radiology/Procedures: Radiology/Procedures: CT imaging--follicles on left ovary [] Course & Med Decision Making: Course & Med Decision Making Pertinent Labs and Imaging studies reviewed. (See chart for details) [] Dragon Disclaimer: Abdiel Disclaimer: This electronic medical record was generated, in whole or in part, using a voice recognition dictation system. Departure Departure Impression: Primary Impression: Abdominal pain, LLQ Additional Impression: Follicle cyst Disposition: 01 HOME, SELF-CARE Condition: STABLE Referrals: OLIVER ELLIS PA-C (PCP) Patient Instructions: Ovarian Cyst, Pelvic Pain, Female Scripts Oxycodone HCl/Acetaminophen (Percocet 5-325 mg Tablet) 1 Each Tablet 1 TAB PO PRN TID PRN for PAIN MDD 3 Tablet(s) for 5 Days, #15 TAB 0 Refills Prov: GLADYS JAVIER DO 12/29/19 Justicifation of Admission Dx: Justifications for Admission: Justification of Admission Dx: N/A GLADYS JAVIER DO Dec 28, 2019 23:27
[2019-12-28 23:48] LABS: CALCIUM 8.3 mg/dL (8.5-10.1); CREATININE 1.3 mg/dL (0.6-1.0); GFR 48.8; POTASSIUM 3.7 mmol/L (3.5-5.1)
[2019-12-28 23:54] LABS: ALBUMIN 3.6 g/dL (3.4-5.0); ALBUMIN/GLOBULIN RATIO 1.2 (1.0-1.7); TOTAL BILIRUBIN 0.3 mg/dL (0.2-1.0); TOTAL PROTEIN 6.6 g/dL (6.4-8.2)
[2019-12-29] MEDS ORDERED: IOHEXOL 300 MG/ML 100ML VIAL. IV ONE (00:15)
[2019-12-29] MEDS ORDERED: CONTRAST GIVEN. MC PRN (00:15)
--- NOTE | 2019-12-29 00:52 | RAD ---
CT abdomen pelvis with contrast. HISTORY: Abdominal pain CT scan the abdomen pelvis was done using 60 mL Omnipaque 300 contrast. Comparison is made with a study from April 2019. Lung bases are clear. There is no pleural effusion. A liver lesion is not identified. Patient's had a cholecystectomy. Spleen and adrenal glands are normal. Pancreas is normal. There is no mass or hydronephrosis in the kidneys. There is no free air or bowel obstruction. Patient's had a hysterectomy. There are follicles in the left ovary, the larger cyst noted on the study from April 2019 has resolved.. There is no bowel obstruction or free air. Appendix is not definitively identified. IMPRESSION: 1. Multiple follicles noted in the left ovary. 2. Previous hysterectomy. 3. Appendix not identified. 4. No bowel obstruction. 5. No other acute finding in the abdomen or pelvis. PQRS Compliance Statement: One or more of the following individualized dose reduction techniques were utilized for this examination: 1. Automated exposure control 2. Adjustment of the mA and/or kV according to patient size 3. Use of iterative reconstruction technique Electronically signed by: Danny Donald MD (12/29/2019 12:49 AM) [id number]
[2019-12-29] MEDS ORDERED: OXYC-325 PO (01:24)
[2019-12-29 01:46] VITALS: BP 107/73
== END 2019-12-29 01:53 | disposition home or self-care (01) ==
LOC: ER 22:13
DX: N83.02 Follicular cyst of left ovary (principal); G43.909 Migraine, unspecified, not intractable, without status migrainosus; G89.29 Other chronic pain; Z87.440 Personal history of urinary (tract) infections; F17.200 Nicotine dependence, unspecified, uncomplicated; Z90.49 Acquired absence of other specified parts of digestive tract; Z90.89 Acquired absence of other organs; Z90.710 Acquired absence of both cervix and uterus; Z98.51 Tubal ligation status
CPT/HCPCS: 36415; 74177; 80053; 81001; 83690; 85025; 96374; 99285; J1885; Q9967

== ENCOUNTER → 2020-11-12 | Outpatient (CLI) | payer MEDICAID ==
--- NOTE | 2020-11-12 16:52 | KCIC ---
MRI of the cervical spine without contrast 11/12/2020 CLINICAL HISTORY: Neck pain which radiates down both arms. TECHNIQUE: Unenhanced T1-weighted, T2-weighted and inversion recovery sagittal and gradient echo and T2-weighted axial images of the cervical spine were obtained. FINDINGS: There is straightening of the normal cervical lordosis. Degenerative signal changes are see n involving all of the disks of the cervical spine. Degenerative signal changes are seen within the m arrow surrounding these discs. The cervical spinal cord is normal morphology, position, and signal ch aracteristics. At the C2-3 disc space there is a minimal generalized disc bulge. Degenerative changes are seen invol ving the uncovertebral and facet joints bilaterally. These findings do not result in significant cent ral spinal canal or neural foraminal stenosis. At the C3-4 disc space there is a mild generalized disc bulge. Degenerative changes are seen involvin g the uncovertebral and facet joints, right greater than left. These findings result in mild right ne ural foraminal stenosis. No significant central spinal canal stenosis is seen. The left neural forame n is patent. At the C4-5, C5-6 and C6-7 disc spaces there are mild generalized disc bulges. Degenerative changes a re seen involving the uncovertebral and facet joints bilaterally. These findings do not result in sig nificant central spinal canal or neural foraminal stenosis. The C7-T1 disc space is within normal limits. IMPRESSION: Degenerative changes are seen throughout the cervical spine. These findings do not result in significant central spinal canal stenosis at any level. Mild right neural foraminal stenosis is s een at C3-4. Electronically signed by: Oswald Banks MD (11/12/2020 4:50 PM) [id number]
--- NOTE | 2020-11-12 17:09 | KCIC ---
MRI of the lumbar spine without contrast 11/12/2020 CLINICAL HISTORY: Low back pain which intermittently shoots down the right leg. TECHNIQUE: Unenhanced T1-weighted and T2-weighted sagittal and axial and inversion recovery sagittal images of the lumbar spine were obtained. FINDINGS: Minimal S-shaped curvature of the thoracolumbar spine is seen. The morphology and signal ch aracteristics of all the disks of the lumbar spine are within normal limits. The marrow signal of the visualized bony structures is within normal limits. The conus medullaris is normal morphology, posit ion, and signal characteristics. No significant degenerative changes are seen on the axial images involving the lumbar spine. No area of significant central spinal canal or neural foraminal stenosis is seen. IMPRESSION: Negative study. Electronically signed by: Oswald Banks MD (11/12/2020 5:06 PM) [id number]
== END ==
LOC: KCIC MRI 13:30
PROVIDERS: ATTEND Family Medicine
DX: M47.812 Spondylosis without myelopathy or radiculopathy, cervical region (principal); M47.816 Spondylosis without myelopathy or radiculopathy, lumbar region
CPT/HCPCS: 72141; 72148

== ENCOUNTER → 2021-03-03 | Outpatient (CLI) | payer MEDICAID ==
--- NOTE | 2021-03-03 15:56 | RAD ---
EXAM: Pelvic sonogram. HISTORY: Left ovarian cyst follow-up. Left adnexal pain. TECHNIQUE: Sonographic imaging of the pelvis was performed. COMPARISON: 10/23/2019. FINDINGS: The uterus and right ovary are surgically absent. The left ovary measures 3.9 x 2.1 x 1.5 c m and contains multiple follicles. There is a dominant follicle/follicular cyst measuring 1.4 cm, sta ble compared to the prior study. There is a complicated follicle or follicular cyst with internal brit ris measuring 1.2 cm, possibly corresponding with a similar-appearing lesion measuring 2.9 cm on the prior study. There is no pelvic free fluid. IMPRESSION: 1. 1.2 cm complicated left ovarian follicle or follicular cyst with internal debris, possibly corresp onding with a similar-appearing lesion measuring 2.9 cm on the prior study. There are a few additiona l simple appearing follicles and a dominant follicle/follicular cyst measuring 1.4 cm. 2. Surgically absent uterus and right ovary. Electronically signed by: Radha Carolina MD (03/03/2021 3:54 PM) [id number]
== END ==
LOC: US 11:23
PROVIDERS: ATTEND Obstetrics & Gynecology
DX: N83.02 Follicular cyst of left ovary (principal); Z90.710 Acquired absence of both cervix and uterus; Z90.721 Acquired absence of ovaries, unilateral
CPT/HCPCS: 76830

== ENCOUNTER → 2021-04-13 | Outpatient (CLI) | payer MEDICAID ==
[~2021-04-13] MED LIST changes: -DULO60CA6 PO; +DULO60CA7 PO
--- NOTE | 2021-04-13 14:05 | KCIC ---
EXAM: Pelvic ultrasound HISTORY: Left ovarian cyst. COMPARISON: 09/24/2019, 12/29/2019. FINDINGS: Sonographic evaluation of the pelvis was performed transabdominally. The uterus is surgically absent. The bladder is decompressed but there is some wall thickening withou t focal lesions. The right ovary has been resected by history. The left ovary measures 3.6 x 3.7 x 3.0 cm. It contains a 3.1 x 2.8 x 1.9 cm small cyst or dominant follicle. There is no solid component. There is normal D oppler flow on the left. IMPRESSION: 1. A 3.1 cm cyst or resolving follicle within the left ovary has decreased from 6.2 cm previously and is likely benign. Electronically signed by: Aminta Warren MD (04/13/2021 2:03 PM) [id number]
== END ==
LOC: KCIC US 11:08
PROVIDERS: ATTEND Obstetrics & Gynecology
DX: N83.202 Unspecified ovarian cyst, left side (principal); Z20.2 Contact with and (suspected) exposure to infections with a predominantly sexual mode of transmission
CPT/HCPCS: 76856